=== PATIENT | female | born 1955 | race Caucasian/White ===

== ENCOUNTER 2017-12-09 11:41 | Inpatient (IN) | payer OTHER ==
--- NOTE | 2017-12-09 13:20 | P.CNPUL ---
History of Present Illness Consult date: 12/09/17 Reason for consult: lung mass, other (ICU mangement) Chief complaint: dyspnea History of present illness: Van Puckett is a 62 y.o. female who presented emergency department complaining of generalized weakness and fatigue. The patient states she was at [facility] last week and was diagnosed with a PE and a right upper lobe lung mass. She was transferred to [facility] and was told she would need bronchoscopy and biopsy as an outpatient. She was also scheduled for a PET scan today but did not go because she wasn't feeling well. She also notes her blood sugars have been very elevated and she is a diabetic. She states normally her blood sugars are well controlled. She was on Lovenox for the PE, but states she stopped taking it on 12/06/2017 because she thought the fatigue was due to the medication. She was admitted to [facility] for further workup. She is a former smoker, 1-2 pack per day for 35 years. She quit smoking in 2004. She states she has had some nausea and vomiting. No diarrhea or abdominal pain. But states she was constipated. No fevers or chills at home. She does cough. She states she has been unable to eat and has been very light headed. She denies a history of COPD or asthma. She does not use any inhalers or nebulizer at home. She does not have home oxygen. 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 She denies any inhalation exposures. Apparently the patient did have a reading today of her Echo at [facility] which revealed a large pericardial effusion consistent with pericardial tamponade and was transferred here to [facility] emergently for possible pericardial window and workup with cardiothoraic surgeon. Upon examination the patient is resting in bed in ICU and is on supplemental oxygen via nasal cannula. She continues to have shortness of breath cough, her dyspnea has become worse over the past 24 hours. Review of Systems 14 point review of systems was completed and is negative unless noted above in the HPI Past Medical History Additional Past Medical History / Comment(s): reviewed in prior hospital records Medications and Allergies Allergies Allergy/AdvReac Type Severity Reaction Status Date / Time No Known Allergies Allergy Verified 12/09/17 12:59 Physical Exam Vitals: Intake and Output 05/29/18 05/30/18 05/30/18 22:59 06:59 14:59 Other: Weight 105 kg GENERAL EXAM: Alert, tired, comfortable in no apparent distress. HEAD: Normocephalic. EYES: Normal reaction of pupils, equal size. NOSE: Clear with pink turbinates. THROAT: No erythema or exudates. NECK: No masses, mild JVD distention. CHEST: No chest wall deformity. LUNGS: Equal air entry with no crackles, wheeze, rhonchi or dullness. Bases diminished CVS: S1 and S2 slighlty muffled, with no audible mumurs, regular rhythm. ABDOMEN: No hepatosplenomegaly, normal bowel sounds, no guarding or rigidity. EXTREMITIES: No edema noted, pedal pulses palpable. CENTRAL NERVOUS SYSTEM: No focal deficits, tone is normal in all 4 extremities. 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 Dehydration Diabetes mellitus type 2, uncontrolled Hypertension UTI POA Generalized weakness and fatigue Noncompliance with anticoagulation Elevated transaminases suspect liver metastasis EtOH use Normochromic, normocytic anemia Plan: Maintain an ICU Cardiothoracic on consult O2 to maintain saturation > or = 90% Duonebs and Pulmicort Gentle IVF hydration Urine culture and ABX: Rocephin Blood sugar control Lovenox on hold for surgery GI prophylaxis: Pepcid Lower extremity doppler US negative for DVT Echocardiogram reviewed E of 55-60% with a large pericardial effusion consistent with pericardial tamponade Will schedule for outpatient PET scan and biopsy Obtain records from [facility] and [facility] Continued smoking cessation Abdominal ultrasound reviewed, consider CT to assess for possible metastatic disease Incentive spirometry and pulmonary hygiene Thank you for this consultation. We will continue to follow along. I performed an examination of the patient and discussed their management with the nurse practitioner. I have reviewed the nurse practitioner's note and agree with the documented findings and plan of care.
[2017-12-09 13:48] LABS: Basophils % (A) 0 %; Eosinophils # (A) 0.1 k/uL (0-0.7); Eosinophils % (A) 1 %; HCT 27.6 % (34.0-46.0); HGB 9.3 gm/dL (11.4-16.0); Lymphocytes # (A) 1.3 k/uL (1.0-4.8); Lymphocytes % (A) 10 %; MCH 29.6 pg (25.0-35.0); MCHC 33.7 g/dL (31.0-37.0); MCV 87.6 fL (80.0-100.0); Mean Platelet Volume 9.7; Monocytes # (A) 0.9 k/uL (0-1.0); Monocytes % (A) 7 %; Neutrophils # (A) 10.1 k/uL (1.3-7.7); Neutrophils % (A) 80 %; Platelet Count 284 k/uL (150-450); RBC 3.15 m/uL (3.80-5.40); RDW 13.7 % (11.5-15.5); WBC 12.6 k/uL (3.8-10.6)
[2017-12-09] MEDS ORDERED: ceFAZolin 2,000 MG in DEXTROSE/WATER 1 50ML.BAG IVPB STA (13:48)
--- NOTE | 2017-12-09 13:48 | P.GSCN ---
History of Present Illness Consult date: 12/09/17 Reason for Consult: Large pericardial effusion. Evaluate for pericardial window. Requesting physician: Rogelio Davis History of present illness: This is a 62-year-old female patient who is followed by Dr. Carina Hugo on an outpatient basis. The patient has a past medical history significant for diabetes mellitus, hypertension, history of nicotine dependence, quit smoking in 2004, recent diagnosis of right upper lobe lung mass, and pulmonary embolism. The patient presented to the emergency department at [facility] with complaints of shortness of breath, generalized weakness and fatigue, and feeling like she was going to pass out. She reports that she was recently diagnosed with a right upper lobe lung mass and a pulmonary embolus about 2 weeks ago at [facility]. Subsequently she was discharged from [facility] and was scheduled to undergo a PET computed tomography scan for further evaluation of her right upper lobe mass. The patient reports that she has been taking Lovenox injections at home for her pulmonary embolus but has recently discontinued the Lovenox as she thought it was contributing to her shortness of breath and fatigue. The patient denies any fever, diarrhea, loss of bladder or bowel function or pain. Subsequently while at [facility] she underwent a venous duplex exam of her lower extremities which was negative for any deep vein thrombosis. She also underwent a 2-D echocardiogram which demonstrated mild mitral valve regurgitation, diastolic compression of the right ventricle suggestive of cardiac, Diastolic Right Atrial Compression Consistent with Damp Not, and a large circumferential pericardial effusion, and a left ventricular systolic function is about 55-60%. Subsequently, due to the patient's large pericardial effusion and she was transferred to [facility] for evaluation for pericardial window by Dr. Gail Bryant from cardiothoracic surgery. Review of Systems A 14 point review of system was completed and was negative except as mentioned in HPI. Past Medical History Past Medical History: Diabetes Mellitus, Hypertension, Pulmonary Embolus (PE) Additional Past Medical History / Comment(s): Right upper lobe lung mass measuring 5.4 cm x 3.7 cm x 3.3 cm. History of Any Multi-Drug Resistant Organisms: None Reported Past Surgical History: Cholecystectomy, Tonsillectomy Additional Past Surgical History / Comment(s): 2 masses removed from her vocal cords in [address] Gonzalez. Past Anesthesia/Blood Transfusion Reactions: No Reported Reaction Past Psychological History: No Psychological Hx Reported Smoking Status: Former smoker (Quit smoking in 2004.) Past Alcohol Use History: Occasional Past Drug Use History: None Reported Medications and Allergies Home Medications Medication Instructions Recorded Confirmed Type No Known Home Medications [No 12/09/17 12/09/17 History Known Home Medications] Allergies Allergy/AdvReac Type Severity Reaction Status Date / Time No Known Allergies Allergy Verified 12/09/17 12:59 Surgical - Exam - General well developed, well nourished, no distress, no pain, obese - Eyes PERRL, normal ocular movement - ENT normal pinna, normal nares, normal mucosa, no hearing loss, no congestion - Neck No lymphadenopathy, bilateral JVD present. no masses, no bruits, trachea midline - Respiratory Lung sounds essentially clear throughout, diminished her bilateral bases. Respirations are symmetrical and nonlabored. - Cardiovascular Regular rhythm and rate. S1 and S2 present. Negative for S3 or murmur. Bedside telemetry showing sinus tachycardia with global ST elevation heart rate 105. No edema present. - Abdomen Abdomen is soft, nontender nondistended. Active bowel sounds all 4 abdominal quadrants. No guarding or rigidity. - Genitourinary Deferred - Rectum Deferred - Integumentary Skin is warm and dry. No clubbing or cyanosis present. No rash or abnormal pigmentation present. - Neurologic normal coordination, normal sensation - Musculoskeletal normal gait, normal posture - Psychiatric oriented to time, oriented to person, oriented to place, speech is normal, memory intact Results - Imaging Chest x-ray: report reviewed, image reviewed CT scan - chest: report reviewed, image reviewed US - abdomen: report reviewed Assessment and Plan (1) Pericardial effusion Current Visit: Yes Status: Acute Code(s): I31.3 - PERICARDIAL EFFUSION ( NONINFLAMMATORY) SNOMED Code(s): 874274586 (2) Hypertension Current Visit: Yes Status: Acute Code(s): I10 - ESSENTIAL (PRIMARY) HYPERTENSION SNOMED Code(s): 13734668 (3) Diabetes mellitus Current Visit: Yes Status: Acute Code(s): E11.9 - TYPE 2 DIABETES MELLITUS WITHOUT COMPLICATIONS SNOMED Code(s): 25502393 (4) SIADH (syndrome of inappropriate ADH production) Current Visit: Yes Status: Acute Code(s): E22.2 - SYNDROME OF INAPPROPRIATE SECRETION OF ANTIDIURETIC HORMONE SNOMED Code(s): 64520876 Plan: The patient was seen and examined. Her chart and diagnostics were reviewed. The patient was seen and examined by Dr. Gail Bryant. The patient has a large pericardial effusion with cardiac tampanode physiology on 2-D echocardiogram. The results of the 2-D echocardiogram were reviewed with the patient and her and an urgent pericardial window was recommended. The patient has agreed to proceed with a pericardial window. The patient will be made nothing by mouth, and consent was be obtained. Type and screen has been ordered. Continue 0.9% normal saline at 100 mL per hour. Cardiology management per Dr. Davis's recommendations. Medical management per primary care service. Thank you Dr. Davis for this consult and we looked for to working with you in the care of your patient. Time with Patient: Greater than 30
[2017-12-09] MEDS ORDERED: ceFAZolin IN SWFI 2 GM/20 ML SYRINGE IVP STA (13:52)
[2017-12-09 13:58] LABS: INR 1.4 (<1.2); Prothrombin Time 13.5 sec (9.0-12.0)
[2017-12-09 14:06] LABS: AST 731 U/L (14-36); Albumin 3.1 g/dL (3.5-5.0); Alkaline Phosphatase 209 U/L (38-126); Anion Gap 10 mmol/L; Blood Urea Nitrogen 30 mg/dL (7-17); Calcium 8.4 mg/dL (8.4-10.2); Carbon Dioxide 22 mmol/L (22-30); Chloride 92 mmol/L (98-107); Glucose 128 mg/dL (74-99); Magnesium 2.5 mg/dL (1.6-2.3); Phosphorus 3.4 mg/dL (2.5-4.5); Potassium 4.2 mmol/L (3.5-5.1); Sodium 124 mmol/L (137-145); Total Bilirubin 0.5 mg/dL (0.2-1.3); Total Protein 5.5 g/dL (6.3-8.2)
[2017-12-09 14:15] LABS: ALT 1172 U/L (9-52)
[2017-12-09] MEDS ORDERED: PROPOFOL 10 MG/ML 20 ML VIAL IV ONE (14:17)
[2017-12-09] MEDS ORDERED: LIDOCAINE 1% INJ 10MG/ML (20 ML MDV) ONE (14:17)
[2017-12-09] MEDS ORDERED: SUCCINYLCHOLINE CHLORIDE VIAL 200 MG/10 ML VIAL IV ONE (14:17)
[2017-12-09] MEDS ORDERED: GLYCOPYRROLATE 0.2 MG/ML 2 ML VIAL ONE (14:17)
[2017-12-09] MEDS ORDERED: NEOSTIGMINE 1 MG/ML 10 ML VIAL ONE (14:17)
[2017-12-09] MEDS ORDERED: fentaNYL (PF) 50 MCG/ML 2 ML AMP ONE (14:17)
[2017-12-09] MEDS ORDERED: MIDAZOLAM 2 MG/2 ML VIAL ONE (14:17)
[2017-12-09] MEDS ORDERED: ETOMIDATE 2 MG/ML 10 ML VIAL ONE (14:17)
[2017-12-09] MEDS ORDERED: ROCURONIUM BROMIDE 10 MG/ML 10 ML VIAL IV ONE (14:17)
--- NOTE | 2017-12-09 15:03 | P.HPIM ---
History of Present Illness H&P Date: 12/09/17 Chief Complaint: pericardial tamponade This is a 8-year-old female with Dr. Hugo medical history significant for hypertension and hypertensive cardio vascular disease, hyperlipidemia, diabetes mellitus type 2, patient was fine up until 2-3 weeks ago according her when she developed significant fatigue and tiredness she was hospitalized at [facility] followed by [facility] and she was found to have a right upper lobe mass and computed tomography scan of the chest was suspicious for pulmonary embolism as well and the patient was started on Lovenox 1 mg per KG every 12 hours and she was sent home patient became quite fatigued and tired and extreme short of breath she ended up coming to the emergency department at [facility] with the above symptoms and she was admitted to the hospital after she was found to have hyperglycemia and at about the same time she was found to have significant hyponatremia thought to be due to the syndrome of inappropriate ADH secretion SIADH due to possible small cell lung cancer, ultrasound of the abdomen at that time was done and that showed possible liver metastases echocardiogram was done and that surprisingly showed significant large pericardial effusion with pericardial tamponade patient was transferred urgently to the intensive care unit at [facility] and she was seen in consultation by cardiothoracic surgery and she is scheduled to go for pericardial window her on today. Review of Systems Constitutional: Reports anorexia, Reports fatigue, Reports lethargy, Reports malaise, Reports weakness, Reports weight loss Eyes: denies blurred vision, denies bulging eye, denies decreased vision, denies diplopia Ears: deny: decreased hearing Ears, nose, mouth and throat: Denies dysphagia, Denies epistaxis, Denies swelling in throat, Denies sore throat Cardiovascular: Reports chest pain, Reports decreased exercise tolerance, Reports dyspnea on exertion, Reports high blood pressure, Reports shortness of breath Respiratory: Reports congestion, Reports cough, Reports cough with sputum, Reports dyspnea, Reports pain on inspiration, Denies hemoptysis, Denies sleep apnea, Denies snoring, Denies wheezing Gastrointestinal: Reports bloating, Reports loss of appetite, Reports nausea, Denies abdominal pain, Denies BRBPR, Denies excessive gas, Denies melena, Denies vomiting Genitourinary: Denies dysuria, Denies urgency Musculoskeletal: Denies myalgias Musculoskeletal: absent: ankle pain, ankle stiffness, ankle swelling, elbow pain , elbow stiffness, elbow swelling, foot pain, foot stiffness, foot swelling, hand pain, hand stiffness, hand swelling, hip pain, hip stiffness, hip swelling , knee pain, knee stiffness, knee swelling, shoulder pain, shoulder stiffness, shoulder swelling, wrist pain, wrist stiffness, wrist swelling Integumentary: Denies pruritus, Denies rash Neurological: Denies numbness, Denies weakness Psychiatric: Reports anxiety Endocrine: Denies fatigue, Denies weight change Past Medical History Past Medical History: Cancer (possible small cell lung cancer.), Diabetes Mellitus, GERD/Reflux, Hyperlipidemia, Hypertension, Pulmonary Embolus (PE), Thyroid Disorder Additional Past Medical History / Comment(s): Right upper lobe lung mass measuring 5.4 cm x 3.7 cm x 3.3 cm. History of Any Multi-Drug Resistant Organisms: None Reported Past Surgical History: Cholecystectomy, Tonsillectomy Additional Past Surgical History / Comment(s): 2 masses removed from her vocal cords in [address] Gonzalez. Past Anesthesia/Blood Transfusion Reactions: No Reported Reaction Past Psychological History: No Psychological Hx Reported Smoking Status: Former smoker (patient used to smoke about half a pack every day she smoked for about 30 years quit in 2004.) Past Alcohol Use History: Occasional Past Drug Use History: None Reported - Past Family History Mother Family Medical History: AFIB, Cancer (mother is alive she is 84-year-old with history of lung cancer atrial fibrillation and PAD.) Father Family Medical History: Cancer (father is 83-year-old with a history of pancreatic cancer CVA and CAD.), Coronary Artery Disease (CAD), CVA/TIA Brother(s) Family Medical History: No Reported History (patient has one brother no major medical problems.) Son(s) Family Medical History: No Reported History (patient has 2 sons no major medical problems.) Daughter(s) Family Medical History: No Reported History (patient has one daughter no major medical problems.) Medications and Allergies Home Medications Medication Instructions Recorded Confirmed Type No Known Home Medications [No 12/09/17 12/09/17 History Known Home Medications] Allergies Allergy/AdvReac Type Severity Reaction Status Date / Time No Known Allergies Allergy Verified 12/09/17 12:59 Physical Exam Vitals: Intake and Output 12/08/17 12/09/17 12/09/17 22:59 06:59 14:59 Other: Weight 105 kg - Constitutional General appearance: average body habitus, mild distress - EENT Eyes: EOMI, PERRLA, dentition normal, scleral icterus, normal appearance ENT: hearing grossly normal, NA/AT, normal oropharynx, no thrush - Neck Neck: no lymphadenopathy, normal ROM, no rigidity, no stridor, no thyromegaly Carotids: bilateral: upstroke normal - Respiratory Respiratory: bilateral: diminished, negative: dullness, rales, rhonchi, wheezing , prolonged expiration, prolonged inspiration - Cardiovascular Rhythm: regular Heart sounds: normal: S1, S2 Abnormal Heart Sounds: systolic murmur - Gastrointestinal General gastrointestinal: normal bowel sounds, soft, tenderness (right upper quadrant.) - Integumentary Integumentary: normal, normal turgor - Neurologic Neurologic: CNII-XII intact - Musculoskeletal Musculoskeletal: gait normal, generalized weakness, strength equal bilaterally - Psychiatric Psychiatric: A&O x's 3, appropriate affect, intact judgment & insight Results CBC & Chem 7: 12/09/17 13:28 12/09/17 13:28 Labs: Abnormal Lab Results - Last 24 Hours (Table) 12/09/17 12/09/17 12/09/17 Range/Units 13:28 13:28 13:28 WBC 12.6 H (3.8-10.6) k/uL RBC 3.15 L (3.80-5.40) m/uL Hgb 9.3 L (11.4-16.0) gm/dL Hct 27.6 L (34.0-46.0) % Neutrophils # 10.1 H (1.3-7.7) k/uL PT 13.5 H (9.0-12.0) sec INR 1.4 H (<1.2) Sodium 124 L (137-145) mmol/L Chloride 92 L (98-107) mmol/L BUN 30 H (7-17) mg/dL Glucose 128 H (74-99) mg/dL Magnesium 2.5 H (1.6-2.3) mg/dL AST 731 H (14-36) U/L ALT 1172 H (9-52) U/L Alkaline Phosphatase 209 H (38-126) U/L Total Protein 5.5 L (6.3-8.2) g/dL Albumin 3.1 L (3.5-5.0) g/dL Thrombosis Risk Factor Assmnt - DVT/VTE Prophylaxis DVT/VTE Prophylaxis: Pharmacologic Prophylaxis ordered, Mechanical Prophylaxis ordered Assessment and Plan Assessment: Assessment and plan: 1. Large pericardial effusion possibly metastatic due to the possible small cell lung cancer with cardiac tamponade. Patient is scheduled to go to the OR for pericardial window with Dr. Bryant, for diagnostic and therapeutic purposes with placement of a drain in there, send the fluid for cytology Gram stain and culture, patient would be admitted to intensive care unit, she will be seen in consultation by cardiology as well as by pulmonary and critical care. 2. Right upper lobe mass suggestive of the lung cancer possibly small cell lung cancer. We need to obtain a tissue biopsy consult hematology oncology Dr. Guzman. 3. Hyponatremia secondary to the syndrome of inappropriate ADH secretion. Continue fluid restriction to 1000 mL every 24 hours, continue IV fluid for now , until after the patient is out of the OR, monitor the patient's sodium on a daily basis. 4. Diabetes mellitus type 2. Start the patient on Lantus 25 units at bedtime along with the Humalog 10 units before each meal, BGM before each meal and at bedtime. 5. Hypertension and hypertensive cardiovascular disease. Hold off antihypertensive medicine until after the surgery. 6. Anemia. Monitor the patient's CBC. 7. Elevated liver function tests likely related to liver metastases. Patient will need to have a PET scan. 8. Pulmonary embolism. Continue patient on Lovenox 1 mg per KG subcutaneous every 12 hours after the surgery. 9. Patient is full code. 10. Admit to inpatient. Estimate a length of stay 2 midnights. 11. Prognosis is very guarded.
[2017-12-09] MEDS ORDERED: SODIUM CHLORIDE 0.9% 50 ML with ceFAZolin 2,000 MG IV ONE ×2 (15:14)
[2017-12-09] MEDS ORDERED: SODIUM CHLORIDE 0.9% 1,000 ML IV ONE (15:14)
[2017-12-09] MEDS: fentaNYL (PF) 50 MCG/ML 2 ML AMP IV ONE ×2 (16:20→16:37)
[2017-12-09 16:57] LABS: Glucose,Whole Blood 144 mg/dL (75-99)
[2017-12-09] MEDS: SODIUM CHLORIDE 0.9% 1,000 ML IV SCH ×2 (17:11→23:48)
--- NOTE | 2017-12-09 18:02 | XR ---
EXAMINATION TYPE: XR chest 1V portable DATE OF EXAM: 12/09/2017 COMPARISON: NONE INDICATION: Status post cardiac window TECHNIQUE: Single frontal view of the chest is obtained. FINDINGS: The heart size is normal. The pulmonary vasculature is normal. Some subtle infiltrate may be in the right upper lung field overlying the scapula. Some hazy appearan laurie at the left base. There is blunting the right costophrenic angle. Very minimal pleural effusions at the lung bases may be present. IMPRESSION: 1. Suggestion of mild bilateral pleural effusions. 2. Some right upper lobe atelectasis or early developing infiltrate may be present.
--- NOTE | 2017-12-09 18:25 | OP ---
OPERATIVE REPORT DATE OF SURGERY: December 09, 2017. SURGEON: Dr. Gail Bryant. COMEDIAN: Felipe Ley. ANESTHESIA: General. PREOPERATIVE DIAGNOSES: Large pericardial effusion with tamponade physiology, lung mass, probable metastatic lung carcinoma. POSTOPERATIVE DIAGNOSES: Large pericardial effusion with tamponade physiology, lung mass, probable metastatic lung carcinoma. PROCEDURE: Subxiphoid pericardiotomy with transesophageal echocardiogram. INDICATION FOR SURGERY: The patient is a 62-year-old lady transferred from [facility] with a 2D echo showing a very large pericardial effusion with tamponade physiology with right ventricular and right atrial diastolic collapse. She had respiratory variation with her pulses. Systolic blood pressure was around 110 and heart rate was 90. The patient was just diagnosed last week with a right upper lobe lung mass with probable pulmonary embolism and she was on Lovenox for anticoagulation. There was no tissue diagnosis. The patient was readmitted to [facility] with increasing shortness of breath. A 2D echo showed large pericardial effusion. To note that her CT scan performed on 11/28/2017 at [facility] showed minimal pericardial fluid. The patient has been taken for an urgent subxiphoid pericardiotomy. Risks, benefits, and alternatives were discussed with her and her . They understood it and agreed to proceed. DESCRIPTION OF THE PROCEDURE: After placement of her right brachial arterial line, general endotracheal anesthesia was induced uneventfully with total hemodynamic stability. The patient received 2 g of cefazolin intravenously. The chest and abdomen were prepped and draped using ChloraPrep. Ioban . Transesophageal echocardiogram confirmed the 2D echo finding showing large pericardial effusion that is circumferential with tamponade physiology. A 5 cm incision was made centered on the tip of the xiphoid bone. Dissection was carried through the linea alba which was opened. I used retractor to elevate the xiphoid and the sternum. With blunt dissection, we could identify the tense bluish pericardium. An incision with a 15 blade was made in it and a total of 1 L of dark bloody fluid was retrieved. A piece of pericardium was sent to pathology. The whole fluid was sent for cytology. There was no obvious metastatic deposit on the ventricle. RIANA showed basically no residual effusion. With that, a right angle 32-[place]ian chest tube was placed in the posterior pericardium and brought out through a separate stab incision below the surgical incision and affixed using Ethibond. The fascia was closed using Ethibond #0 starting in each corner and meeting in the midline. The rest of the closure proceeded in layers using Vicryl. Skin glue was applied. The patient had minimal blood loss. She was transferred to the ICU in stable condition. MMODL / IJN: [id number] /
[2017-12-09] MEDS: KETOROLAC 30 MG/ML 1 ML VIAL IVP SCH ×2 (19:00→23:48)
[2017-12-09] MEDS: ceFAZolin IN SWFI 2 GM/20 ML SYRINGE IVP SCH (20:15)
[2017-12-09 21:30] LABS: Glucose,Whole Blood 105 mg/dL (75-99)
[2017-12-09] MEDS: INSULIN ASPART 100 UNIT/ML 1 ML 10 ML VIAL SQ SCH (22:25)
[2017-12-10 05:10] LABS: Hemoglobin A1C 10.1 % (4.0-6.0)
[2017-12-10 05:53] LABS: ALT 723 U/L (9-52); AST 272 U/L (14-36); Albumin 2.4 g/dL (3.5-5.0); Alkaline Phosphatase 159 U/L (38-126); Anion Gap 8 mmol/L; Blood Urea Nitrogen 21 mg/dL (7-17); Carbon Dioxide 24 mmol/L (22-30); Chloride 103 mmol/L (98-107); Glucose 77 mg/dL (74-99); Magnesium 2.5 mg/dL (1.6-2.3); Potassium 3.5 mmol/L (3.5-5.1); Sodium 135 mmol/L (137-145); Total Bilirubin 0.4 mg/dL (0.2-1.3); Total Protein 4.7 g/dL (6.3-8.2)
[2017-12-10 06:00] LABS: Basophils % (A) 0 %; Eosinophils # (A) 0.2 k/uL (0-0.7); Eosinophils % (A) 2 %; HCT 26.8 % (34.0-46.0); HGB 8.7 gm/dL (11.4-16.0); Lymphocytes # (A) 0.9 k/uL (1.0-4.8); Lymphocytes % (A) 10 %; MCH 28.8 pg (25.0-35.0); MCHC 32.5 g/dL (31.0-37.0); MCV 88.7 fL (80.0-100.0); Mean Platelet Volume 8.8; Monocytes # (A) 0.5 k/uL (0-1.0); Monocytes % (A) 6 %; Neutrophils # (A) 6.8 k/uL (1.3-7.7); Neutrophils % (A) 79 %; Platelet Count 242 k/uL (150-450); RBC 3.03 m/uL (3.80-5.40); RDW 14.7 % (11.5-15.5); WBC 8.6 k/uL (3.8-10.6)
[2017-12-10] MEDS: ceFAZolin IN SWFI 2 GM/20 ML SYRINGE IVP SCH ×2 (06:06→13:30)
[2017-12-10] MEDS: KETOROLAC 30 MG/ML 1 ML VIAL IVP SCH ×3 (06:28→18:33)
--- NOTE | 2017-12-10 07:19 | XR ---
EXAMINATION TYPE: XR chest 1V portable DATE OF EXAM: 12/10/2017 COMPARISON: 12/09/2017 HISTORY: Status post cardiac window. Follow-up exam. Right upper lobe airspace disease. TECHNIQUE: Single frontal view of the chest is obtained. FINDINGS: There is a similar appearing right upper lobe masslike consolidation. Left basilar subsegm ental atelectasis is also noted. There is some haziness of the costophrenic angles that may relate to patient body habitus or trace pleural effusions. No pneumothorax. Mild multilevel degenerative worley es of the thoracic spine are seen. Cardia mediastinal silhouette is upper limits of normal and stable . IMPRESSION: Persistent right upper lobe masslike consolidation. This could represent pneumonia in th e appropriate clinical setting. Follow-up to resolution is recommended to ensure no underlying mass.
[2017-12-10 07:33] LABS: Glucose,Whole Blood 88 mg/dL (75-99)
[2017-12-10] MEDS: INSULIN ASPART 100 UNIT/ML 1 ML 10 ML VIAL SQ SCH ×4 (08:19→21:00)
[2017-12-10] MEDS: POTASSIUM CHLORIDE 10 MEQ in WATER FOR INJECTION 1 100ML.BAG IVPB SCH ×2 (08:20→14:14)
--- NOTE | 2017-12-10 08:32 | P.CONS ---
History of Present Illness - Reason for Consult Consult date: 12/10/17 Lung, Liver Mass Requesting physician: Manisha Coto - Chief Complaint SOB - History of Present Illness Ms. Puckett is a 62-year-old female. She has a known medical history of hypertension, vascular disease, hyperlipidemia, diabetes mellitus type 2. Apparently she has been in her normal state of health until a few weeks prior. Per the medical record approximately 2 or 3 weeks ago complained of feeling increasing and persistent fatigue. She was evaluated at [facility]. She was then evaluated at [facility] where a CT scan of her chest was completed and apparently showed a right upper lobe mass. with suspicion for a pulmonary embolism. She was started on Lovenox and discharged home. She continued to have persistent worsening fatigued and complained of progressive shortness of breath of breath. She presented to the emergency department at [facility] and admitted. During her Emergency room evaluation she was found to be hyperglycemic and hyponatremic. Lower extremity doppler did not show evidence of any DVT. Echocardiogram was concerning for pericardial effussion with pericardial tamponade, subsequently Ms. Celaya was transferred to the intensive care unit at [facility] for cardiothoracic surgery consultation. Ultrasound of the abdomen was also repeated and showed hypoechotic lesions in liver concerning for a metastatic malignant process. She is status post pericardial window on 12/09/17. 12/10/17 Seen in ICU, Sitting up in chair and eating breakfast. She is concerned about probable diagnosis of cancer, while we await pathology. She is doing well after undergoing pericardial window. Review of Systems A 14 point review of systems assessed ad completed and all negative except HPI Past Medical History Past Medical History: Cancer (possible small cell lung cancer.), Diabetes Mellitus, GERD/Reflux, Hyperlipidemia, Hypertension, Pulmonary Embolus (PE), Thyroid Disorder Additional Past Medical History / Comment(s): Right upper lobe lung mass measuring 5.4 cm x 3.7 cm x 3.3 cm. History of Any Multi-Drug Resistant Organisms: None Reported Past Surgical History: Cholecystectomy, Tonsillectomy Additional Past Surgical History / Comment(s): 2 masses removed from her vocal cords in [address] Gonzalez. Past Anesthesia/Blood Transfusion Reactions: No Reported Reaction Past Psychological History: No Psychological Hx Reported Smoking Status: Former smoker (patient used to smoke about half a pack every day she smoked for about 30 years quit in 2004.) Past Alcohol Use History: Occasional Past Drug Use History: None Reported - Past Family History Mother Family Medical History: AFIB, Cancer (mother is alive she is 84-year-old with history of lung cancer atrial fibrillation and PAD.) Father Family Medical History: Cancer (father is 83-year-old with a history of pancreatic cancer CVA and CAD.), Coronary Artery Disease (CAD), CVA/TIA Brother(s) Family Medical History: No Reported History (patient has one brother no major medical problems.) Son(s) Family Medical History: No Reported History (patient has 2 sons no major medical problems.) Daughter(s) Family Medical History: No Reported History (patient has one daughter no major medical problems.) Medications and Allergies Home Medications Medication Instructions Recorded Confirmed Type Lovenox Unknown Dose 1 dose SQ BID 12/09/17 12/09/17 History Allergies Allergy/AdvReac Type Severity Reaction Status Date / Time No Known Allergies Allergy Verified 12/09/17 12:59 Physical Exam Vitals: Vital Signs Temp Pulse Pulse Resp BP BP Pulse Ox 12/10/17 06:00 69 17 121/58 100 12/10/17 05:00 68 18 100 12/10/17 04:00 97.5 F L 64 16 100 12/10/17 03:00 68 19 100 12/10/17 02:00 66 18 98 12/10/17 01:00 70 16 104/60 97 12/10/17 00:00 98 F 65 86 17 111/64 98 12/09/17 23:30 69 18 97 12/09/17 23:00 71 17 97 12/09/17 22:30 69 16 98 12/09/17 22:25 68 17 98 12/09/17 22:00 75 13 100 12/09/17 21:30 69 16 99 12/09/17 21:00 71 17 98 12/09/17 20:30 78 16 98 12/09/17 20:15 81 15 98 12/09/17 20:00 97.5 F L 79 86 16 86 L 12/09/17 19:45 80 15 94 L 12/09/17 19:41 80 17 92 L 12/09/17 19:00 98.3 F 86 22 95 05/30/18 18:00 85 24 96 12/09/17 17:00 98.0 F 82 26 H 175/68 96 12/09/17 16:45 81 18 138/77 99 12/09/17 16:30 82 18 158/85 100 12/09/17 16:15 83 18 163/82 100 12/09/17 16:07 96.8 F L 83 18 156/90 100 Intake and Output 12/09/17 12/10/17 12/10/17 22:59 06:59 14:59 Intake Total 1850 900 Output Total 550 781 Balance 1300 119 Intake: IV 1350 900 Sodium Chloride 0.9% 1, 300 900 000 ml @ 100 mls/hr IV . Q10H [facility] Rx#:[id number] Intake, IV Titration 500 Amount Sodium Chloride 0.9% 1, 500 000 ml @ 100 mls/hr IV . Q10H [facility] Rx#:[id number] Output: Chest Tube Drainage 30 31 medistinal 30 31 Drainage 45 chest 45 Urine 450 750 Estimated Blood Loss 25 Other: Voiding Method Bedside Commode Bedside Commode # Voids 1 1 Weight 107.2 kg ABP, PAP, CO, CI - Last 8 Hours Arterial Blood Pressure 108/47 Arterial Blood Pressure 108/48 Arterial Blood Pressure 92/44 Arterial Blood Pressure 96/50 Arterial Blood Pressure 100/48 Arterial Blood Pressure 94/51 - Constitutional General appearance: cooperative, no acute distress - EENT Eyes: EOMI, PERRLA, dentition normal ENT: hard of hearing, normal oropharynx - Neck Neck: normal ROM - Respiratory Respiratory: bilateral: CTA - Cardiovascular Rhythm: irregularly irregular Heart sounds: normal: S1, S2 leg Peripheral Edema: bilateral: Trace - Gastrointestinal General gastrointestinal: normal bowel sounds, soft, tenderness - Integumentary Integumentary: pale - Neurologic Neurologic: CNII-XII intact - Musculoskeletal Musculoskeletal: generalized weakness, strength equal bilaterally - Psychiatric Psychiatric: A&O x's 3, appropriate affect, intact judgment & insight Results CBC & Chem 7: 12/10/17 04:20 12/10/17 04:20 Labs: Abnormal Lab Results - Last 24 Hours (Table) 12/09/17 12/09/17 12/09/17 Range/Units 13:28 13:28 13:28 WBC 12.6 H (3.8-10.6) k/uL RBC 3.15 L (3.80-5.40) m/uL Hgb 9.3 L (11.4-16.0) gm/dL Hct 27.6 L (34.0-46.0) % Neutrophils # 10.1 H (1.3-7.7) k/uL Lymphocytes # (1.0-4.8) k/uL PT 13.5 H (9.0-12.0) sec INR 1.4 H (<1.2) Sodium 124 L (137-145) mmol/L Chloride 92 L (98-107) mmol/L BUN 30 H (7-17) mg/dL Glucose 128 H (74-99) mg/dL POC Glucose (mg/dL) (75-99) mg/dL Hemoglobin A1c (4.0-6.0) % Calcium (8.4-10.2) mg/dL Magnesium 2.5 H (1.6-2.3) mg/dL AST 731 H (14-36) U/L ALT 1172 H (9-52) U/L Alkaline Phosphatase 209 H (38-126) U/L Total Protein 5.5 L (6.3-8.2) g/dL Albumin 3.1 L (3.5-5.0) g/dL 12/09/17 12/09/17 12/09/17 Range/Units 13:28 16:50 21:28 WBC (3.8-10.6) k/uL RBC (3.80-5.40) m/uL Hgb (11.4-16.0) gm/dL Hct (34.0-46.0) % Neutrophils # (1.3-7.7) k/uL Lymphocytes # (1.0-4.8) k/uL PT (9.0-12.0) sec INR (<1.2) Sodium (137-145) mmol/L Chloride (98-107) mmol/L BUN (7-17) mg/dL Glucose (74-99) mg/dL POC Glucose (mg/dL) 144 H 105 H (75-99) mg/dL Hemoglobin A1c 10.1 H (4.0-6.0) % Calcium (8.4-10.2) mg/dL Magnesium (1.6-2.3) mg/dL AST (14-36) U/L ALT (9-52) U/L Alkaline Phosphatase (38-126) U/L Total Protein (6.3-8.2) g/dL Albumin (3.5-5.0) g/dL 12/10/17 12/10/17 Range/Units 04:20 04:20 WBC (3.8-10.6) k/uL RBC 3.03 L (3.80-5.40) m/uL Hgb 8.7 L (11.4-16.0) gm/dL Hct 26.8 L (34.0-46.0) % Neutrophils # (1.3-7.7) k/uL Lymphocytes # 0.9 L (1.0-4.8) k/uL PT (9.0-12.0) sec INR (<1.2) Sodium 135 L (137-145) mmol/L Chloride (98-107) mmol/L BUN 21 H (7-17) mg/dL Glucose (74-99) mg/dL POC Glucose (mg/dL) (75-99) mg/dL Hemoglobin A1c (4.0-6.0) % Calcium 8.0 L (8.4-10.2) mg/dL Magnesium 2.5 H (1.6-2.3) mg/dL AST 272 H (14-36) U/L ALT 723 H (9-52) U/L Alkaline Phosphatase 159 H (38-126) U/L Total Protein 4.7 L (6.3-8.2) g/dL Albumin 2.4 L (3.5-5.0) g/dL Assessment and Plan Plan: Assessment and recommendations: 1. Normocytic Anemia - Monitor CBC - Transfuse PRBC Hgb less than 7 - Anemia Work-up 2. New Lung Mass - Concerning for underlying Neoplasm - Await Pathology of recent Cardiac procedure 3. Hypoechoic Lesions on Liver - concerning for metastatic Disease 4. Pericardial Effusion and Tamponade - Status Post RIANA and Pericardial Window - Await pathology from pericardial tissue,fluid 5. Acute Pulmonary Embolism - Diagnosed at outside Hospital - Continue on Short Acting anticoagulation at this time - Rec Heparin in case further surgical intervention is needed. 6. Liver Transminitis - Likely secondary to underlying metastatic malignancy - Monitor Liver Function - Await Pathology Physican Attestation: I have completed the full history and physical of this patient and agree with above dictation by Katherin Gutierrez NP, Dictated as a scribe.
[2017-12-10] MEDS ORDERED: PANTOPRAZOLE 40 MG/10 ML VIAL IVP SCH (09:00)
[2017-12-10 09:30] LABS: Reticulocyte % 2.9 % (0.5-2.0)
--- NOTE | 2017-12-10 09:31 | P.PN ---
Subjective Progress Note Date: 12/10/17 Principal diagnosis: Large pericardial effusion. Previous medical history of diabetes mellitus, hypertension, previous tobacco dependence, recent diagnosis of right upper lobe lung mass and pulmonary embolism. POD #1 subxiphoid pericardiotomy with transesophageal echocardiogram Patient is currently sitting up in a recliner in no acute distress. Denies pain , shortness of breath. States she feels much better than when she came in. Objective - Vital Signs Vital signs: Vital Signs Temp 97.5 F L 12/10/17 08:00 Pulse 72 12/10/17 08:00 Resp 16 12/10/17 08:00 BP 86/57 12/10/17 08:00 Pulse Ox 98 12/10/17 08:20 Intake & Output 12/09/17 12/10/17 12/10/17 18:59 06:59 18:59 Intake Total 1650 1300 340 Output Total 570 861 109 Balance 1080 439 231 Weight 105 kg 107.2 kg 107.2 kg Intake: IV 1050 1200 100 Sodium Chloride 0.9% 1, 1200 100 000 ml @ 100 mls/hr IV . Q10H [facility] Rx#:[id number] Intake, IV Titration 600 100 Amount Sodium Chloride 0.9% 1, 600 100 000 ml @ 100 mls/hr IV . Q10H [facility] Rx#:[id number] Oral 240 Output: Chest Tube Drainage 61 9 medistinal 61 9 Drainage 45 chest 45 Urine 500 800 100 Estimated Blood Loss 25 Other: Voiding Method Bedside Commode Bedside Commode # Voids 1 ABP, PAP, CO, CI - Last Documented Arterial Blood Pressure 124/59 - Constitutional General appearance: Present: cooperative, no acute distress, obese - Respiratory Details: Lungs sounds clear bilaterally. Respirations even, nonlabored. Currently 2 L nasal cannula with oxygen saturation 98%. Able to achieve 1000 mL on incentive spirometry. - Cardiovascular Details: S1, S2 present. Regular rate and rhythm, sinus rhythm on telemetry. Palpable peripheral pulses bilaterally. No edema present. No calf pain or tenderness noted. Mediastinal chest tube present, 30 mL serosanguineous drainage overnight , 117 mL since surgery. - Gastrointestinal Gastrointestinal Comment(s): Abdomen soft, nontender, nondistended. Active bowel sounds 4 quadrants. Tolerating diet. - Genitourinary Genitourinary Comment(s): Continues to void clear, yellow urine. - Integumentary Integumentary Comment(s): Skin is warm and dry with evidence perfusion. Mediastinal chest tube site covered with dry intact dressing. - Neurologic Neurologic: Present: CNII-XII intact - Musculoskeletal Musculoskeletal: Present: gait normal, strength equal bilaterally - Psychiatric Psychiatric: Present: A&O x's 3, appropriate affect, intact judgment & insight - Allied health notes Allied health notes reviewed: nursing - Labs CBC & Chem 7: 12/10/17 04:20 12/10/17 04:20 Labs: Abnormal Lab Results - Last 24 Hours (Table) 12/09/17 12/09/17 12/09/17 Range/Units 13:28 13:28 13:28 WBC 12.6 H (3.8-10.6) k/uL RBC 3.15 L (3.80-5.40) m/uL Hgb 9.3 L (11.4-16.0) gm/dL Hct 27.6 L (34.0-46.0) % Neutrophils # 10.1 H (1.3-7.7) k/uL Lymphocytes # (1.0-4.8) k/uL PT 13.5 H (9.0-12.0) sec INR 1.4 H (<1.2) Sodium 124 L (137-145) mmol/L Chloride 92 L (98-107) mmol/L BUN 30 H (7-17) mg/dL Glucose 128 H (74-99) mg/dL POC Glucose (mg/dL) (75-99) mg/dL Hemoglobin A1c (4.0-6.0) % Calcium (8.4-10.2) mg/dL Magnesium 2.5 H (1.6-2.3) mg/dL AST 731 H (14-36) U/L ALT 1172 H (9-52) U/L Alkaline Phosphatase 209 H (38-126) U/L Total Protein 5.5 L (6.3-8.2) g/dL Albumin 3.1 L (3.5-5.0) g/dL 12/09/17 12/09/17 12/09/17 Range/Units 13:28 16:50 21:28 WBC (3.8-10.6) k/uL RBC (3.80-5.40) m/uL Hgb (11.4-16.0) gm/dL Hct (34.0-46.0) % Neutrophils # (1.3-7.7) k/uL Lymphocytes # (1.0-4.8) k/uL PT (9.0-12.0) sec INR (<1.2) Sodium (137-145) mmol/L Chloride (98-107) mmol/L BUN (7-17) mg/dL Glucose (74-99) mg/dL POC Glucose (mg/dL) 144 H 105 H (75-99) mg/dL Hemoglobin A1c 10.1 H (4.0-6.0) % Calcium (8.4-10.2) mg/dL Magnesium (1.6-2.3) mg/dL AST (14-36) U/L ALT (9-52) U/L Alkaline Phosphatase (38-126) U/L Total Protein (6.3-8.2) g/dL Albumin (3.5-5.0) g/dL 12/10/17 12/10/17 Range/Units 04:20 04:20 WBC (3.8-10.6) k/uL RBC 3.03 L (3.80-5.40) m/uL Hgb 8.7 L (11.4-16.0) gm/dL Hct 26.8 L (34.0-46.0) % Neutrophils # (1.3-7.7) k/uL Lymphocytes # 0.9 L (1.0-4.8) k/uL PT (9.0-12.0) sec INR (<1.2) Sodium 135 L (137-145) mmol/L Chloride (98-107) mmol/L BUN 21 H (7-17) mg/dL Glucose (74-99) mg/dL POC Glucose (mg/dL) (75-99) mg/dL Hemoglobin A1c (4.0-6.0) % Calcium 8.0 L (8.4-10.2) mg/dL Magnesium 2.5 H (1.6-2.3) mg/dL AST 272 H (14-36) U/L ALT 723 H (9-52) U/L Alkaline Phosphatase 159 H (38-126) U/L Total Protein 4.7 L (6.3-8.2) g/dL Albumin 2.4 L (3.5-5.0) g/dL - Imaging and Cardiology Chest x-ray: report reviewed, image reviewed Assessment and Plan (1) Mass of upper lobe of right lung Current Visit: Yes Status: Acute Code(s): R91.8 - OTHER NONSPECIFIC ABNORMAL FINDING OF LUNG FIELD SNOMED Code(s): 577976443 (2) History of pulmonary embolism Current Visit: No Status: Resolved Code(s): Z86.711 - PERSONAL HISTORY OF PULMONARY EMBOLISM SNOMED Code(s): 168250200 (3) Tobacco dependence in remission Current Visit: No Status: Resolved Code(s): F17.201 - NICOTINE DEPENDENCE, UNSPECIFIED, IN REMISSION SNOMED Code(s): 853816939 (4) Diabetes mellitus Current Visit: Yes Status: Chronic Code(s): E11.9 - TYPE 2 DIABETES MELLITUS WITHOUT COMPLICATIONS SNOMED Code(s): 02153657 (5) Hypertension Current Visit: Yes Status: Chronic Code(s): I10 - ESSENTIAL (PRIMARY) HYPERTENSION SNOMED Code(s): 31630806 (6) Pericardial effusion Current Visit: Yes Status: Acute Code(s): I31.3 - PERICARDIAL EFFUSION ( NONINFLAMMATORY) SNOMED Code(s): 297349870 Plan: 1. Continue to monitor pericardial output and will discontinue mediastinal chest tube when output is minimal. 2. Wean O2 as tolerated. Encourage incentive spirometry use 10 times every hour while awake. 3. Encourage continued smoking cessation. 4. Medical management per primary care service. 5. Pain control with ordered medications. 6. Increase activity, ambulate as tolerated. 7. Discontinue arterial line. 8. May transfer out of ICU to 6 E. selective care when bed available. 9. More recommendations to follow. Time with Patient: Greater than 30
[2017-12-10 09:37] LABS: INR 1.3 (<1.2); Prothrombin Time 12.4 sec (9.0-12.0)
[2017-12-10 10:56] VITALS: BMI 34.9
[2017-12-10 12:18] LABS: Glucose,Whole Blood 135 mg/dL (75-99)
[2017-12-10] MEDS ORDERED: RX INFO: IV CONTRAST WAS GIVEN 1 EACH MISC MISCELLANE PRN (12:18)
--- NOTE | 2017-12-10 12:26 | P.PN ---
Subjective Progress Note Date: 12/10/17 HPI: Van Puckett is a 62 y.o. female who presented emergency department complaining of generalized weakness and fatigue. The patient states she was at [facility] last week and was diagnosed with a PE and a right upper lobe lung mass. She was transferred to [facility] and was told she would need bronchoscopy and biopsy as an outpatient. She was also scheduled for a PET scan today but did not go because she wasn't feeling well. She also notes her blood sugars have been very elevated and she is a diabetic. She states normally her blood sugars are well controlled. She was on Lovenox for the PE, but states she stopped taking it on 12/06/2017 because she thought the fatigue was due to the medication. She was admitted to [facility] for further workup. She is a former smoker, 1-2 pack per day for 35 years. She quit smoking in 2004. She states she has had some nausea and vomiting. No diarrhea or abdominal pain. But states she was constipated. No fevers or chills at home. She does cough. She states she has been unable to eat and has been very light headed. She denies a history of COPD or asthma. She does not use any inhalers or nebulizer at home. She does not have home oxygen. 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 She denies any inhalation exposures. Apparently the patient did have a reading today of her Echo at [facility] which revealed a large pericardial effusion consistent with pericardial tamponade and was transferred here to [facility] emergently for possible pericardial window and workup with cardiothoraic surgeon. Upon examination the patient is resting in bed in ICU and is on supplemental oxygen via nasal cannula. She continues to have shortness of breath cough, her dyspnea has become worse over the past 24 hours. 12/10/17- vision seen examined and evaluated today in the intensive care unit. The patient appears depressed and her condition is discussed with her at length. She has been forgetful and had some confusion over the past few days as to what has happened with her medically. Her chest x-ray was reviewed and continues to show the persistent right upper lobe mass consolidation. She did undergo a pericardial window yesterday with cardiothoracic surgery. She currently has a chest tube in place. She has had 30-50 mL of drainage overnight. She has been resting up in bed on room air. Does have shortness of breath and cough. We will order a CT of the brain with and without contrast to evaluate for any metastases. Objective - Vital Signs Vital signs: Vital Signs Temp 97.5 F L 12/10/17 08:00 Pulse 72 12/10/17 08:00 Resp 16 12/10/17 08:00 BP 86/57 12/10/17 08:00 Pulse Ox 98 12/10/17 08:20 Intake & Output 12/09/17 12/10/17 12/10/17 18:59 06:59 18:59 Intake Total 1650 1300 340 Output Total 570 861 109 Balance 1080 439 231 Weight 105 kg 107.2 kg 107.2 kg Intake: IV 1050 1200 100 Sodium Chloride 0.9% 1, 1200 100 000 ml @ 100 mls/hr IV . Q10H [facility] Rx#:[id number] Intake, IV Titration 600 100 Amount Sodium Chloride 0.9% 1, 600 100 000 ml @ 100 mls/hr IV . Q10H [facility] Rx#:[id number] Oral 240 Output: Chest Tube Drainage 61 9 medistinal 61 9 Drainage 45 chest 45 Urine 500 800 100 Estimated Blood Loss 25 Other: Voiding Method Bedside Commode Bedside Commode # Voids 1 ABP, PAP, CO, CI - Last Documented Arterial Blood Pressure 124/59 - Exam GENERAL EXAM: Alert, tired, depression, comfortable in no apparent distress. HEAD: Normocephalic. EYES: Normal reaction of pupils, equal size. NOSE: Clear with pink turbinates. THROAT: No erythema or exudates. NECK: No masses, mild JVD distention. CHEST: No chest wall deformity. Chest tube in place. LUNGS: Equal air entry with no crackles, wheeze, rhonchi or dullness. Bases diminished CVS: S1 and S2 slighlty muffled, with no audible mumurs, regular rhythm. ABDOMEN: No hepatosplenomegaly, normal bowel sounds, no guarding or rigidity. EXTREMITIES: No edema noted, pedal pulses palpable. CENTRAL NERVOUS SYSTEM: No focal deficits, tone is normal in all 4 extremities. - Labs CBC & Chem 7: 12/10/17 04:20 12/10/17 04:20 Labs: Abnormal Lab Results - Last 24 Hours (Table) 12/09/17 12/09/17 12/09/17 Range/Units 13:28 13:28 13:28 WBC 12.6 H (3.8-10.6) k/uL RBC 3.15 L (3.80-5.40) m/uL Hgb 9.3 L (11.4-16.0) gm/dL Hct 27.6 L (34.0-46.0) % Neutrophils # 10.1 H (1.3-7.7) k/uL Lymphocytes # (1.0-4.8) k/uL Retic Count (0.5-2.0) % PT 13.5 H (9.0-12.0) sec INR 1.4 H (<1.2) Sodium 124 L (137-145) mmol/L Chloride 92 L (98-107) mmol/L BUN 30 H (7-17) mg/dL Glucose 128 H (74-99) mg/dL POC Glucose (mg/dL) (75-99) mg/dL Hemoglobin A1c (4.0-6.0) % Calcium (8.4-10.2) mg/dL Magnesium 2.5 H (1.6-2.3) mg/dL AST 731 H (14-36) U/L ALT 1172 H (9-52) U/L Alkaline Phosphatase 209 H (38-126) U/L Lactate Dehydrogenase (313-618) U/L Total Protein 5.5 L (6.3-8.2) g/dL Albumin 3.1 L (3.5-5.0) g/dL 12/09/17 12/09/17 12/09/17 Range/Units 13:28 16:50 21:28 WBC (3.8-10.6) k/uL RBC (3.80-5.40) m/uL Hgb (11.4-16.0) gm/dL Hct (34.0-46.0) % Neutrophils # (1.3-7.7) k/uL Lymphocytes # (1.0-4.8) k/uL Retic Count (0.5-2.0) % PT (9.0-12.0) sec INR (<1.2) Sodium (137-145) mmol/L Chloride (98-107) mmol/L BUN (7-17) mg/dL Glucose (74-99) mg/dL POC Glucose (mg/dL) 144 H 105 H (75-99) mg/dL Hemoglobin A1c 10.1 H (4.0-6.0) % Calcium (8.4-10.2) mg/dL Magnesium (1.6-2.3) mg/dL AST (14-36) U/L ALT (9-52) U/L Alkaline Phosphatase (38-126) U/L Lactate Dehydrogenase (313-618) U/L Total Protein (6.3-8.2) g/dL Albumin (3.5-5.0) g/dL 12/10/17 12/10/17 12/10/17 Range/Units 04:20 04:20 09:05 WBC (3.8-10.6) k/uL RBC 3.03 L (3.80-5.40) m/uL Hgb 8.7 L (11.4-16.0) gm/dL Hct 26.8 L (34.0-46.0) % Neutrophils # (1.3-7.7) k/uL Lymphocytes # 0.9 L (1.0-4.8) k/uL Retic Count 2.9 H (0.5-2.0) % PT (9.0-12.0) sec INR (<1.2) Sodium 135 L (137-145) mmol/L Chloride (98-107) mmol/L BUN 21 H (7-17) mg/dL Glucose (74-99) mg/dL POC Glucose (mg/dL) (75-99) mg/dL Hemoglobin A1c (4.0-6.0) % Calcium 8.0 L (8.4-10.2) mg/dL Magnesium 2.5 H (1.6-2.3) mg/dL AST 272 H (14-36) U/L ALT 723 H (9-52) U/L Alkaline Phosphatase 159 H (38-126) U/L Lactate Dehydrogenase (313-618) U/L Total Protein 4.7 L (6.3-8.2) g/dL Albumin 2.4 L (3.5-5.0) g/dL 12/10/17 12/10/17 12/10/17 Range/Units 09:05 09:05 12:16 WBC (3.8-10.6) k/uL RBC (3.80-5.40) m/uL Hgb (11.4-16.0) gm/dL Hct (34.0-46.0) % Neutrophils # (1.3-7.7) k/uL Lymphocytes # (1.0-4.8) k/uL Retic Count (0.5-2.0) % PT 12.4 H (9.0-12.0) sec INR 1.3 H (<1.2) Sodium (137-145) mmol/L Chloride (98-107) mmol/L BUN (7-17) mg/dL Glucose (74-99) mg/dL POC Glucose (mg/dL) 135 H (75-99) mg/dL Hemoglobin A1c (4.0-6.0) % Calcium (8.4-10.2) mg/dL Magnesium (1.6-2.3) mg/dL AST (14-36) U/L ALT (9-52) U/L Alkaline Phosphatase (38-126) U/L Lactate Dehydrogenase 870 H (313-618) U/L Total Protein (6.3-8.2) g/dL Albumin (3.5-5.0) g/dL Assessment and Plan Assessment: Assessment: Large pericardial effusion with cardiac tamponade Pulmonary embolism Right upper lobe lung mass History of tobacco abuse, in remission Hyponatremia, likely 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 Dehydration Diabetes mellitus type 2, uncontrolled Hypertension UTI POA Generalized weakness and fatigue Noncompliance with anticoagulation Elevated transaminases suspect liver metastasis EtOH use Normochromic, normocytic anemia Plan: Patient can be downgraded from the intensive care unit Obtain a CT of the brain to evaluate for any metastases Cardiothoracic on consult O2 to maintain saturation > or = 90% Duonebs and Pulmicort Gentle IVF hydration Urine culture and ABX Blood sugar control Lovenox on hold for surgery, restart per cardiothoracic recommendations GI prophylaxis: Pepcid Lower extremity doppler US negative for DVT Echocardiogram reviewed E of 55-60% with a large pericardial effusion consistent with pericardial tamponade Will schedule for outpatient PET scan and biopsy Obtain records from [facility] and [facility] Continued smoking cessation Abdominal ultrasound reviewed, consider CT to assess for possible metastatic disease Incentive spirometry and pulmonary hygiene Add-on PT and OT increase activity as tolerated Thank you for this consultation. We will continue to follow along. I performed an examination of the patient and discussed their management with the nurse practitioner. I have reviewed the nurse practitioner's note and agree with the documented findings and plan of care.
--- NOTE | 2017-12-10 12:53 | P.PN ---
Subjective Progress Note Date: 12/10/17 This is a 62-year-old female with Dr. Hugo medical history significant for hypertension and hypertensive cardio vascular disease, hyperlipidemia, diabetes mellitus type 2, patient was fine up until 2-3 weeks ago according her when she developed significant fatigue and tiredness she was hospitalized at [facility] followed by [facility] and she was found to have a right upper lobe mass and computed tomography scan of the chest was suspicious for pulmonary embolism as well and the patient was started on Lovenox 1 mg per KG every 12 hours and she was sent home patient became quite fatigued and tired and extreme short of breath she ended up coming to the emergency department at [facility] with the above symptoms and she was admitted to the hospital after she was found to have hyperglycemia and at about the same time she was found to have significant hyponatremia thought to be due to the syndrome of inappropriate ADH secretion SIADH due to possible small cell lung cancer, ultrasound of the abdomen at that time was done and that showed possible liver metastases echocardiogram was done and that surprisingly showed significant large pericardial effusion with pericardial tamponade patient was transferred urgently to the intensive care unit at [facility] and she was seen in consultation by cardiothoracic surgery and she is scheduled to go for pericardial window her on today. 12/10: Patient is status post subxiphoid pericardiotomy and transesophageal echocardiogram. Bloody fluid was retrieved and sent for cytology and piece of pericardium was sent for pathology.. A right chest tube was placed in the posterior pericardium. Repeat chest x-ray this morning shows persistent right upper lobe masslike consolidation. This could represent pneumonia in the appropriate clinical setting. Follow-up to ensure no underlying mass. Patient is followed by Dr. parker. There is plan for outpatient PET scan. Patient is pulse oxing 100% on 2 L nasal cannula. Otherwise vital signs have been stable. White count is down to 8.6, hemoglobin 8.7, sodium is improved to 135. Her blood glucose running between 88 and 144. Liver function tests are improved from previous. Patient has been seen by oncology. Patient states that she is feeling much improved today. She states her breathing is better. Her appetite and drinking is improved. Her chest pain is controlled. Plan is to hold anticoagulation for another 24 hours. Objective - Vital Signs Vital signs: Vital Signs Temp 97.5 F L 12/10/17 04:00 Pulse 69 12/10/17 06:00 Resp 17 12/10/17 06:00 BP 121/58 12/10/17 06:00 Pulse Ox 100 12/10/17 06:00 Intake & Output 12/09/17 12/10/17 12/10/17 18:59 06:59 18:59 Intake Total 1650 1300 Output Total 570 861 Balance 1080 439 Weight 105 kg 107.2 kg Intake: IV 1050 1200 Sodium Chloride 0.9% 1, 1200 000 ml @ 100 mls/hr IV . Q10H [facility] Rx#:[id number] Intake, IV Titration 600 100 Amount Sodium Chloride 0.9% 1, 600 100 000 ml @ 100 mls/hr IV . Q10H [facility] Rx#:[id number] Output: Chest Tube Drainage 61 medistinal 61 Drainage 45 chest 45 Urine 500 800 Estimated Blood Loss 25 Other: Voiding Method Bedside Commode # Voids 1 ABP, PAP, CO, CI - Last Documented Arterial Blood Pressure 108/47 - Exam General appearance: average body habitus, mild distress - EENT Eyes: EOMI, PERRLA, dentition normal, scleral icterus, normal appearance ENT: hearing grossly normal, NA/AT, normal oropharynx, no thrush - Neck Neck: no lymphadenopathy, normal ROM, no rigidity, no stridor, no thyromegaly Carotids: bilateral: upstroke normal - Respiratory Respiratory: bilateral: diminished, negative: dullness, rales, rhonchi, wheezing , prolonged expiration, prolonged inspiration - Cardiovascular Rhythm: regular Heart sounds: normal: S1, S2 Abnormal Heart Sounds: systolic murmur - Gastrointestinal General gastrointestinal: normal bowel sounds, soft, tenderness (right upper quadrant.) - Integumentary Integumentary: normal, normal turgor - Neurologic Neurologic: CNII-XII intact - Musculoskeletal Musculoskeletal: gait normal, generalized weakness, strength equal bilaterally - Psychiatric Psychiatric: A&O x's 3, appropriate affect, intact judgment & insight - Labs CBC & Chem 7: 12/10/17 04:20 12/10/17 04:20 Labs: Abnormal Lab Results - Last 24 Hours (Table) 12/09/17 12/09/17 12/09/17 Range/Units 13:28 13:28 13:28 WBC 12.6 H (3.8-10.6) k/uL RBC 3.15 L (3.80-5.40) m/uL Hgb 9.3 L (11.4-16.0) gm/dL Hct 27.6 L (34.0-46.0) % Neutrophils # 10.1 H (1.3-7.7) k/uL Lymphocytes # (1.0-4.8) k/uL PT 13.5 H (9.0-12.0) sec INR 1.4 H (<1.2) Sodium 124 L (137-145) mmol/L Chloride 92 L (98-107) mmol/L BUN 30 H (7-17) mg/dL Glucose 128 H (74-99) mg/dL POC Glucose (mg/dL) (75-99) mg/dL Hemoglobin A1c (4.0-6.0) % Calcium (8.4-10.2) mg/dL Magnesium 2.5 H (1.6-2.3) mg/dL AST 731 H (14-36) U/L ALT 1172 H (9-52) U/L Alkaline Phosphatase 209 H (38-126) U/L Total Protein 5.5 L (6.3-8.2) g/dL Albumin 3.1 L (3.5-5.0) g/dL 12/09/17 12/09/17 12/09/17 Range/Units 13:28 16:50 21:28 WBC (3.8-10.6) k/uL RBC (3.80-5.40) m/uL Hgb (11.4-16.0) gm/dL Hct (34.0-46.0) % Neutrophils # (1.3-7.7) k/uL Lymphocytes # (1.0-4.8) k/uL PT (9.0-12.0) sec INR (<1.2) Sodium (137-145) mmol/L Chloride (98-107) mmol/L BUN (7-17) mg/dL Glucose (74-99) mg/dL POC Glucose (mg/dL) 144 H 105 H (75-99) mg/dL Hemoglobin A1c 10.1 H (4.0-6.0) % Calcium (8.4-10.2) mg/dL Magnesium (1.6-2.3) mg/dL AST (14-36) U/L ALT (9-52) U/L Alkaline Phosphatase (38-126) U/L Total Protein (6.3-8.2) g/dL Albumin (3.5-5.0) g/dL 12/10/17 12/10/17 Range/Units 04:20 04:20 WBC (3.8-10.6) k/uL RBC 3.03 L (3.80-5.40) m/uL Hgb 8.7 L (11.4-16.0) gm/dL Hct 26.8 L (34.0-46.0) % Neutrophils # (1.3-7.7) k/uL Lymphocytes # 0.9 L (1.0-4.8) k/uL PT (9.0-12.0) sec INR (<1.2) Sodium 135 L (137-145) mmol/L Chloride (98-107) mmol/L BUN 21 H (7-17) mg/dL Glucose (74-99) mg/dL POC Glucose (mg/dL) (75-99) mg/dL Hemoglobin A1c (4.0-6.0) % Calcium 8.0 L (8.4-10.2) mg/dL Magnesium 2.5 H (1.6-2.3) mg/dL AST 272 H (14-36) U/L ALT 723 H (9-52) U/L Alkaline Phosphatase 159 H (38-126) U/L Total Protein 4.7 L (6.3-8.2) g/dL Albumin 2.4 L (3.5-5.0) g/dL Assessment and Plan Plan: 1. Large pericardial effusion possibly metastatic due to the possible small cell lung cancer with cardiac tamponade. Patient is scheduled to go to the OR for pericardial window with Dr. Bryant, for diagnostic and therapeutic purposes with placement of a drain in there, send the fluid for cytology Gram stain and culture, patient would be admitted to intensive care unit, she will be seen in consultation by cardiology as well as by pulmonary and critical care. Await cytology and pathology report. Oncology consult is appreciated. 2. Right upper lobe mass suggestive of the lung cancer possibly small cell lung cancer. We need to obtain a tissue biopsy consult hematology oncology Dr. Guzman. 3. Hyponatremia secondary to the syndrome of inappropriate ADH secretion. Continue fluid restriction to 1000 mL every 24 hours, continue IV fluid for now , until after the patient is out of the OR, monitor the patient's sodium on a daily basis. 4. Diabetes mellitus type 2. Start the patient on Lantus 25 units at bedtime along with the Humalog 10 units before each meal, BGM before each meal and at bedtime. 5. Hypertension and hypertensive cardiovascular disease. Hold off antihypertensive medicine until after the surgery. 6. Anemia of chronic disease as well as possible acute blood loss from tamponade. Monitor the patient's CBC. 7. Elevated liver function tests likely related to liver metastases. Patient will need to have a PET scan. 8. Pulmonary embolism. Continue patient on Lovenox 1 mg per KG subcutaneous every 12 hours after the surgery- hold for another 24 hours. 9. Patient is full code. Discharge plan: Most likely return home Impression and plan of care have been directed as dictated by the signing physician. Karen Ghotra nurse practitioner acting as scribe for signing physician.
[2017-12-10] MEDS: IPRATROPIUM-ALBUTEROL 3 ML NEB INHALATION SCH ×2 (13:00→19:37)
[2017-12-10] MEDS: SODIUM CHLORIDE 0.9% 1,000 ML IV SCH ×2 (14:14→22:18)
[2017-12-10 16:45] LABS: Glucose,Whole Blood 169 mg/dL (75-99)
[2017-12-10 17:50] LABS: Folate, Serum 15.1 ng/mL; Iron Saturation 5.88 (12.00-45.00)
--- NOTE | 2017-12-10 19:13 | ECHOF ---
Referral Reason:s/p pericardial window MEASUREMENTS -------- HEIGHT: 175.3 cm WEIGHT: 107.0 kg BP: 124/59 RVIDd: 3.4 cm (< 3.3) IVSd: 1.3 cm (0.6 - 1.1) LVIDd: 3.6 cm (3.9 - 5.3) LVPWd: 1.3 cm (0.6 - 1.1) IVSs: 1.4 cm LVIDs: 2.4 cm LVPWs: 1.4 cm LAESV Index (A-L): 28.04 ml/m Ao Diam: 2.7 cm (2.0 - 3.7) LA Diam: 4.3 cm (2.7 - 3.8) MV E Reagan: 1.13 m/s MV DecT: 218 ms MV A Reagan: 0.74 m/s MV E/A Ratio: 1.53 RAP: 5.00 mmHg RVSP: 10.60 mmHg FINDINGS -------- Sinus rhythm. This was a technically adequate study. No subcostals due to surgery The left ventricular size is normal. There is mild concentric left ventricular hypertrophy. Overa ll left ventricular systolic function is normal with, an EF between 55 - 60 %. The right ventricle is mildly enlarged. Normal LA size by volume 22+/-6 ml/m2. The right atrium is normal in size. The aortic valve is trileaflet, and appears structurally normal. No aortic stenosis or regurgitation. The mitral valve leaflets are mildly thickened. Mild mitral regurgitation is present. Trace tricuspid regurgitation present. Right ventricular systolic pressure is normal at < 35 mmHg. There is no evidence of pulmonary hypertension. The pulmonic valve was not well visualized. There is no pulmonic regurgitation present. The aortic root size is normal. IVC Not well visulized. There is a small, generalized pericardial effusion present. CONCLUSIONS -------- 1. Sinus rhythm. 2. This was a technically adequate study. 3. No subcostals due to surgery 4. The left ventricular size is normal. 5. There is mild concentric left ventricular hypertrophy. 6. Overall left ventricular systolic function is normal with, an EF between 55 - 60 %. 7. The right ventricle is mildly enlarged. 8. Normal LA size by volume 22+/-6 ml/m2. 9. The aortic valve is trileaflet, and appears structurally normal. No aortic stenosis or regurgitati on. 10. The mitral valve leaflets are mildly thickened. 11. Mild mitral regurgitation is present. 12. Trace tricuspid regurgitation present. 13. Right ventricular systolic pressure is normal at < 35 mmHg. 14. There is no pulmonic regurgitation present. 15. The aortic root size is normal. 16. IVC Not well visulized. 17. There is a small, generalized pericardial effusion present. [employer]: Manuelito Freitas RDCS
[2017-12-10] MEDS: BUDESONIDE 0.5 MG/2 ML NEBU INHALATION SCH (19:37)
[2017-12-10 20:35] LABS: Glucose,Whole Blood 151 mg/dL (75-99)
--- NOTE | 2017-12-10 23:05 | PN ---
PROGRESS NOTE Mrs. Van Puckett is a lady who was transferred from [facility] after evaluation by Dr. Davis for a pericardial window that was performed. This lady has a history of probably metastatic cancer, although we do not have a specific tissue diagnosis for her. She is being closely followed by Dr. Monie Myers from a pulmonary standpoint. Patient has a diagnosis of pulmonary embolism, right upper lobe mass and significant pericardial effusion. Following the drainage of over a liter of fluid, she actually feels better. She is sitting up and talking, has no shortness of breath. She has also a history of smoking which she quit in 2004. I am recommending that we will obtain a repeat echocardiogram today to see the improvement in the pericardial fluid and continue her other management. I believe pulmonology is following her closely and hoping to have a tissue diagnosis. Her blood pressure and heart rate are good and echo report from [facility] suggests normal LV function. We will therefore repeat echo and follow her and see how she does. Vital signs are stable. Blood pressure is good. S1, S2 heard normally. Lungs reveal diminished air entry. Abdomen is soft. Lower extremities reveal diminished pulses. Central nervous system is normal. Plan is to follow her pericardial effusion with a repeat echocardiogram today and see how she does. MMODL / IJN: [id number] /
[2017-12-11] MEDS: KETOROLAC 30 MG/ML 1 ML VIAL IVP SCH ×5 (00:15→23:24)
[2017-12-11 04:30] LABS: Basophils % (A) 0 %; Eosinophils # (A) 0.2 k/uL (0-0.7); Eosinophils % (A) 4 %; HCT 27.8 % (34.0-46.0); HGB 8.9 gm/dL (11.4-16.0); Lymphocytes % (A) 15 %; MCH 28.4 pg (25.0-35.0); MCHC 32.1 g/dL (31.0-37.0); MCV 88.4 fL (80.0-100.0); Mean Platelet Volume 8.6; Monocytes # (A) 0.6 k/uL (0-1.0); Monocytes % (A) 9 %; Neutrophils # (A) 4.7 k/uL (1.3-7.7); Neutrophils % (A) 71 %; Platelet Count 220 k/uL (150-450); RBC 3.14 m/uL (3.80-5.40); RDW 14.1 % (11.5-15.5); WBC 6.7 k/uL (3.8-10.6)
[2017-12-11 04:40] LABS: ALT 447 U/L (9-52); AST 101 U/L (14-36); Albumin 2.7 g/dL (3.5-5.0); Alkaline Phosphatase 140 U/L (38-126); Anion Gap 10 mmol/L; Blood Urea Nitrogen 11 mg/dL (7-17); Calcium 8.4 mg/dL (8.4-10.2); Carbon Dioxide 24 mmol/L (22-30); Chloride 103 mmol/L (98-107); Glucose 127 mg/dL (74-99); Magnesium 2.4 mg/dL (1.6-2.3); Potassium 3.6 mmol/L (3.5-5.1); Sodium 137 mmol/L (137-145); Total Bilirubin 0.3 mg/dL (0.2-1.3); Total Protein 4.9 g/dL (6.3-8.2)
[2017-12-11] MEDS: SODIUM CHLORIDE 0.9% 1,000 ML IV SCH ×2 (05:45→16:11)
[2017-12-11 05:53] LABS: Glucose,Whole Blood 135 mg/dL (75-99)
--- NOTE | 2017-12-11 07:10 | XR ---
EXAMINATION TYPE: XR chest 1V portable DATE OF EXAM: 12/11/2017 CLINICAL HISTORY: Difficulty breathing post pericardial window progress study. TECHNIQUE: Single AP portable upright view of the chest is obtained. COMPARISON: Chest x-ray from one day earlier and older study December 09, 2017. FINDINGS: There is persistent mild cardiomegaly with small bilateral pleural effusions and associate d bibasilar atelectasis and/or infiltrate. There is stable lateral right upper lobe masslike consolid ation. There is no new focal airspace opacity or pneumothorax seen bilaterally. Osseous structures ar e intact. IMPRESSION: Overall stable findings, mild cardiomegaly with small bilateral pleural effusions and a ssociated bibasilar atelectasis and/or infiltrate. Masslike consolidation lateral right upper lobe is redemonstrated. Clinical correlation advised.
[2017-12-11 07:14] LABS: Glucose,Whole Blood 130 mg/dL (75-99)
[2017-12-11] MEDS: INSULIN ASPART 100 UNIT/ML 1 ML 10 ML VIAL SQ SCH ×4 (08:03→20:54)
[2017-12-11] MEDS: PANTOPRAZOLE 40 MG TABLET PO SCH (08:07)
[2017-12-11 08:13] LABS: INR 1.2 (<1.2); Partial Thromboplastin Time 23.7 sec (22.0-30.0); Prothrombin Time 11.3 sec (9.0-12.0)
[2017-12-11] MEDS: BUDESONIDE 0.5 MG/2 ML NEBU INHALATION SCH ×2 (08:34→19:48)
[2017-12-11] MEDS: IPRATROPIUM-ALBUTEROL 3 ML NEB INHALATION SCH ×3 (08:34→19:48)
--- NOTE | 2017-12-11 09:53 | P.PN ---
Subjective Progress Note Date: 12/11/17 HPI: Van Puckett is a 62 y.o. female who presented emergency department complaining of generalized weakness and fatigue. The patient states she was at [facility] last week and was diagnosed with a PE and a right upper lobe lung mass. She was transferred to [facility] and was told she would need bronchoscopy and biopsy as an outpatient. She was also scheduled for a PET scan today but did not go because she wasn't feeling well. She also notes her blood sugars have been very elevated and she is a diabetic. She states normally her blood sugars are well controlled. She was on Lovenox for the PE, but states she stopped taking it on 12/06/2017 because she thought the fatigue was due to the medication. She was admitted to [facility] for further workup. She is a former smoker, 1-2 pack per day for 35 years. She quit smoking in 2004. She states she has had some nausea and vomiting. No diarrhea or abdominal pain. But states she was constipated. No fevers or chills at home. She does cough. She states she has been unable to eat and has been very light headed. She denies a history of COPD or asthma. She does not use any inhalers or nebulizer at home. She does not have home oxygen. 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 She denies any inhalation exposures. Apparently the patient did have a reading today of her Echo at [facility] which revealed a large pericardial effusion consistent with pericardial tamponade and was transferred here to [facility] emergently for possible pericardial window and workup with cardiothoraic surgeon. Upon examination the patient is resting in bed in ICU and is on supplemental oxygen via nasal cannula. She continues to have shortness of breath cough, her dyspnea has become worse over the past 24 hours. 12/10/17- vision seen examined and evaluated today in the intensive care unit. The patient appears depressed and her condition is discussed with her at length. She has been forgetful and had some confusion over the past few days as to what has happened with her medically. Her chest x-ray was reviewed and continues to show the persistent right upper lobe mass consolidation. She did undergo a pericardial window yesterday with cardiothoracic surgery. She currently has a chest tube in place. She has had 30-50 mL of drainage overnight. She has been resting up in bed on room air. Does have shortness of breath and cough. We will order a CT of the brain with and without contrast to evaluate for any metastases. 12/11/17- patient is being seen examined and evaluated today on rounds. She is resting up in bed on room air. States she did utilize 2 L of supplemental oxygen at night. She states she did have some lower saturations while sleeping. She could possibly have some sleep apnea and would benefit from a sleep study upon discharge. All labs and reports have been reviewed today. Chest tube is in place and drained around 40 mL in the last 24 hours. Chest x- ray was reviewed and does show cardiomegaly and small bilateral effusion/ infiltrate the masslike consolidation is redemonstrated. Her repeat echo yesterday did show an EF of 55-60% with a small generalized pericardial effusion. Still is noted to have some forgetfulness in short-term memory loss. A CT of the brain was ordered yesterday to rule out metastases however the patient and the refused to have it done at this time. Objective - Vital Signs Vital signs: Vital Signs Temp 98 F 12/11/17 08:00 Pulse 82 12/11/17 09:00 Resp 16 12/11/17 09:00 BP 116/72 12/11/17 09:00 Pulse Ox 96 12/11/17 09:00 Intake & Output 12/10/17 12/11/17 12/11/17 18:59 06:59 18:59 Intake Total 1380 600 350 Output Total 628 16 Balance 752 584 350 Weight 107.2 kg 108.2 kg Intake: IV 140 Sodium Chloride 0.9% 1, 140 000 ml @ 100 mls/hr IV . Q10H [facility] Rx#:[id number] Oral 1240 600 350 Output: Chest Tube Drainage 28 15 medistinal 28 15 Urine 600 1 Other: Voiding Method Bedside Commode Bedside Commode Bedside Commode # Voids 0 0 ABP, PAP, CO, CI - Last Documented Arterial Blood Pressure 114/63 - Exam GENERAL EXAM: Alert, tired, depression, comfortable in no apparent distress. HEAD: Normocephalic. EYES: Normal reaction of pupils, equal size. NOSE: Clear with pink turbinates. THROAT: No erythema or exudates. NECK: No masses, mild JVD distention. CHEST: No chest wall deformity. Chest tube in place. LUNGS: Equal air entry with no crackles, wheeze, rhonchi or dullness. Bases diminished CVS: S1 and S2 slighlty muffled, with no audible mumurs, regular rhythm. ABDOMEN: No hepatosplenomegaly, normal bowel sounds, no guarding or rigidity. EXTREMITIES: No edema noted, pedal pulses palpable. CENTRAL NERVOUS SYSTEM: No focal deficits, tone is normal in all 4 extremities. - Labs CBC & Chem 7: 12/11/17 04:14 12/11/17 04:14 Labs: Abnormal Lab Results - Last 24 Hours (Table) 12/10/17 12/10/17 12/10/17 Range/Units 09:05 09:05 12:16 RBC (3.80-5.40) m/uL Hgb (11.4-16.0) gm/dL Hct (34.0-46.0) % INR (<1.2) Creatinine (0.52-1.04) mg/dL Glucose (74-99) mg/dL POC Glucose (mg/dL) 135 H (75-99) mg/dL Magnesium (1.6-2.3) mg/dL Iron 15 L (50-170) ug/dL Iron Saturation 5.88 L (12.00-45.00) Ferritin 541.0 H (10.0-291.0) ng/mL AST (14-36) U/L ALT (9-52) U/L Alkaline Phosphatase (38-126) U/L Lactate Dehydrogenase 870 H (313-618) U/L Total Protein (6.3-8.2) g/dL Albumin (3.5-5.0) g/dL Vitamin B12 2260.0 H (200.0-944.0) pg/mL 12/10/17 12/10/17 12/11/17 Range/Units 16:43 20:33 04:14 RBC 3.14 L (3.80-5.40) m/uL Hgb 8.9 L (11.4-16.0) gm/dL Hct 27.8 L (34.0-46.0) % INR (<1.2) Creatinine (0.52-1.04) mg/dL Glucose (74-99) mg/dL POC Glucose (mg/dL) 169 H 151 H (75-99) mg/dL Magnesium (1.6-2.3) mg/dL Iron (50-170) ug/dL Iron Saturation (12.00-45.00) Ferritin (10.0-291.0) ng/mL AST (14-36) U/L ALT (9-52) U/L Alkaline Phosphatase (38-126) U/L Lactate Dehydrogenase (313-618) U/L Total Protein (6.3-8.2) g/dL Albumin (3.5-5.0) g/dL Vitamin B12 (200.0-944.0) pg/mL 12/11/17 12/11/17 12/11/17 Range/Units 04:14 05:50 07:12 RBC (3.80-5.40) m/uL Hgb (11.4-16.0) gm/dL Hct (34.0-46.0) % INR (<1.2) Creatinine 0.50 L (0.52-1.04) mg/dL Glucose 127 H (74-99) mg/dL POC Glucose (mg/dL) 135 H 130 H (75-99) mg/dL Magnesium 2.4 H (1.6-2.3) mg/dL Iron (50-170) ug/dL Iron Saturation (12.00-45.00) Ferritin (10.0-291.0) ng/mL AST 101 H (14-36) U/L ALT 447 H (9-52) U/L Alkaline Phosphatase 140 H (38-126) U/L Lactate Dehydrogenase (313-618) U/L Total Protein 4.9 L (6.3-8.2) g/dL Albumin 2.7 L (3.5-5.0) g/dL Vitamin B12 (200.0-944.0) pg/mL 12/11/17 Range/Units 07:44 RBC (3.80-5.40) m/uL Hgb (11.4-16.0) gm/dL Hct (34.0-46.0) % INR 1.2 H (<1.2) Creatinine (0.52-1.04) mg/dL Glucose (74-99) mg/dL POC Glucose (mg/dL) (75-99) mg/dL Magnesium (1.6-2.3) mg/dL Iron (50-170) ug/dL Iron Saturation (12.00-45.00) Ferritin (10.0-291.0) ng/mL AST (14-36) U/L ALT (9-52) U/L Alkaline Phosphatase (38-126) U/L Lactate Dehydrogenase (313-618) U/L Total Protein (6.3-8.2) g/dL Albumin (3.5-5.0) g/dL Vitamin B12 (200.0-944.0) pg/mL Assessment and Plan Assessment: Assessment: Large pericardial effusion with cardiac tamponade Pulmonary embolism Right upper lobe lung mass History of tobacco abuse, in remission Hyponatremia, likely 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 Dehydration Diabetes mellitus type 2, uncontrolled Hypertension UTI POA Generalized weakness and fatigue Noncompliance with anticoagulation Elevated transaminases suspect liver metastasis EtOH use Normochromic, normocytic anemia Cardiomegaly Plan: Patient can be downgraded from the intensive care unit Obtain a CT of the brain to evaluate for any metastases Cardiothoracic on consult O2 to maintain saturation > or = 90% Duonebs and Pulmicort Gentle IVF hydration ABX completed Blood sugar control Lovenox on hold for surgery, restart per cardiothoracic recommendations GI prophylaxis: Pepcid Lower extremity doppler US negative for DVT Orginal Echocardiogram reviewed EF of 55-60% with a large pericardial effusion consistent with pericardial tamponade Repeat echocardiogram post pericardial window reviewed EF of 55-60% with a small generalized pericardial effusion Will schedule for outpatient PET scan and biopsy Obtain records from [facility] and [facility] Continued smoking cessation Abdominal ultrasound reviewed, consider CT to assess for possible metastatic disease Incentive spirometry and pulmonary hygiene PT and OT increase activity as tolerated Thank you for this consultation. We will continue to follow along. I performed an examination of the patient and discussed their management with the nurse practitioner. I have reviewed the nurse practitioner's note and agree with the documented findings and plan of care.
--- NOTE | 2017-12-11 10:18 | P.PN ---
Subjective Progress Note Date: 12/11/17 Principal diagnosis: Large pericardial effusion. Previous medical history of diabetes mellitus, hypertension, previous tobacco dependence, recent diagnosis of right upper lobe lung mass and pulmonary embolism. POD #2 subxiphoid pericardiotomy with transesophageal echocardiogram Patient is currently sitting up in a chair in no acute distress. She does state that she felt better yesterday and then today, today she feels like she's been hit by a [place] truck. Objective - Vital Signs Vital signs: Vital Signs Temp 97.9 F 12/11/17 07:00 Pulse 69 12/11/17 07:00 Resp 16 12/11/17 07:00 BP 125/69 12/11/17 07:00 Pulse Ox 96 12/11/17 07:00 Intake & Output 12/10/17 12/11/17 12/11/17 18:59 06:59 18:59 Intake Total 1380 600 100 Output Total 628 16 Balance 752 584 100 Weight 107.2 kg 108.2 kg Intake: IV 140 Sodium Chloride 0.9% 1, 140 000 ml @ 100 mls/hr IV . Q10H [facility] Rx#:[id number] Oral 1240 600 100 Output: Chest Tube Drainage 28 15 medistinal 28 15 Urine 600 1 Other: Voiding Method Bedside Commode Bedside Commode # Voids 0 ABP, PAP, CO, CI - Last Documented Arterial Blood Pressure 114/63 - Constitutional General appearance: Present: cooperative, no acute distress, obese - Respiratory Details: Lungs sounds clear bilaterally. Respirations even, nonlabored. Currently room air with oxygen saturation 97%. Able to achieve 2000 mL on incentive spirometry. - Cardiovascular Details: S1, S2 present. Regular rate and rhythm, sinus rhythm on telemetry. Palpable peripheral pulses bilaterally. No edema present. No calf pain or tenderness noted. Mediastinal chest tube present to waterseal, 15 mL serous drainage overnight, 40 mL output in the last 24 hours. - Gastrointestinal Gastrointestinal Comment(s): Abdomen soft, nontender, nondistended. Active bowel sounds 4 quadrants. Tolerating diet. - Genitourinary Genitourinary Comment(s): Continues to void clear, yellow urine. - Integumentary Integumentary Comment(s): Skin is warm and dry with evidence of good perfusion. Mediastinal chest tube site covered with dry intact dressing. - Neurologic Neurologic: Present: CNII-XII intact - Musculoskeletal Musculoskeletal: Present: gait normal, strength equal bilaterally - Psychiatric Psychiatric Comment(s): Forgetful at times, frustrated Psychiatric: Present: A&O x's 3, appropriate affect - Allied health notes Allied health notes reviewed: nursing - Labs CBC & Chem 7: 12/11/17 04:14 12/11/17 04:14 Labs: Abnormal Lab Results - Last 24 Hours (Table) 12/10/17 12/10/17 12/10/17 Range/Units 09:05 09:05 09:05 RBC (3.80-5.40) m/uL Hgb (11.4-16.0) gm/dL Hct (34.0-46.0) % Retic Count 2.9 H (0.5-2.0) % PT 12.4 H (9.0-12.0) sec INR 1.3 H (<1.2) Creatinine (0.52-1.04) mg/dL Glucose (74-99) mg/dL POC Glucose (mg/dL) (75-99) mg/dL Magnesium (1.6-2.3) mg/dL AST (14-36) U/L ALT (9-52) U/L Alkaline Phosphatase (38-126) U/L Lactate Dehydrogenase 870 H (313-618) U/L Total Protein (6.3-8.2) g/dL Albumin (3.5-5.0) g/dL 12/10/17 12/10/17 12/10/17 Range/Units 12:16 16:43 20:33 RBC (3.80-5.40) m/uL Hgb (11.4-16.0) gm/dL Hct (34.0-46.0) % Retic Count (0.5-2.0) % PT (9.0-12.0) sec INR (<1.2) Creatinine (0.52-1.04) mg/dL Glucose (74-99) mg/dL POC Glucose (mg/dL) 135 H 169 H 151 H (75-99) mg/dL Magnesium (1.6-2.3) mg/dL AST (14-36) U/L ALT (9-52) U/L Alkaline Phosphatase (38-126) U/L Lactate Dehydrogenase (313-618) U/L Total Protein (6.3-8.2) g/dL Albumin (3.5-5.0) g/dL 12/11/17 12/11/17 12/11/17 Range/Units 04:14 04:14 05:50 RBC 3.14 L (3.80-5.40) m/uL Hgb 8.9 L (11.4-16.0) gm/dL Hct 27.8 L (34.0-46.0) % Retic Count (0.5-2.0) % PT (9.0-12.0) sec INR (<1.2) Creatinine 0.50 L (0.52-1.04) mg/dL Glucose 127 H (74-99) mg/dL POC Glucose (mg/dL) 135 H (75-99) mg/dL Magnesium 2.4 H (1.6-2.3) mg/dL AST 101 H (14-36) U/L ALT 447 H (9-52) U/L Alkaline Phosphatase 140 H (38-126) U/L Lactate Dehydrogenase (313-618) U/L Total Protein 4.9 L (6.3-8.2) g/dL Albumin 2.7 L (3.5-5.0) g/dL 12/11/17 Range/Units 07:12 RBC (3.80-5.40) m/uL Hgb (11.4-16.0) gm/dL Hct (34.0-46.0) % Retic Count (0.5-2.0) % PT (9.0-12.0) sec INR (<1.2) Creatinine (0.52-1.04) mg/dL Glucose (74-99) mg/dL POC Glucose (mg/dL) 130 H (75-99) mg/dL Magnesium (1.6-2.3) mg/dL AST (14-36) U/L ALT (9-52) U/L Alkaline Phosphatase (38-126) U/L Lactate Dehydrogenase (313-618) U/L Total Protein (6.3-8.2) g/dL Albumin (3.5-5.0) g/dL - Imaging and Cardiology Chest x-ray: report reviewed, image reviewed Echocardiogram reviewed Assessment and Plan (1) Mass of upper lobe of right lung Current Visit: Yes Status: Acute Code(s): R91.8 - OTHER NONSPECIFIC ABNORMAL FINDING OF LUNG FIELD SNOMED Code(s): 732735937 (2) History of pulmonary embolism Current Visit: No Status: Resolved Code(s): Z86.711 - PERSONAL HISTORY OF PULMONARY EMBOLISM SNOMED Code(s): 045226459 (3) Tobacco dependence in remission Current Visit: No Status: Resolved Code(s): F17.201 - NICOTINE DEPENDENCE, UNSPECIFIED, IN REMISSION SNOMED Code(s): 089105740 (4) Diabetes mellitus Current Visit: Yes Status: Chronic Code(s): E11.9 - TYPE 2 DIABETES MELLITUS WITHOUT COMPLICATIONS SNOMED Code(s): 40356953 (5) Hypertension Current Visit: Yes Status: Chronic Code(s): I10 - ESSENTIAL (PRIMARY) HYPERTENSION SNOMED Code(s): 93348635 (6) Pericardial effusion Current Visit: Yes Status: Acute Code(s): I31.3 - PERICARDIAL EFFUSION ( NONINFLAMMATORY) SNOMED Code(s): 779476284 Plan: 1. Will discontinue mediastinal chest tube today. 2. Okay to restart Lovenox from our standpoint. 3. Encourage incentive spirometry use 10 times every hour while awake. 4. Encourage continued smoking cessation. 5. Medical management per primary care service. 6. Pain control with ordered medications. 7. Increase activity, ambulate as tolerated. 8. May transfer out of ICU to 6 E. selective care when bed available. 9. Will see patient PRN. Time with Patient: Greater than 30
[2017-12-11 11:58] LABS: Glucose,Whole Blood 164 mg/dL (75-99)
--- NOTE | 2017-12-11 13:16 | P.PN ---
Subjective Progress Note Date: 12/11/17 This is a 62-year-old female with Dr. Hugo medical history significant for hypertension and hypertensive cardio vascular disease, hyperlipidemia, diabetes mellitus type 2, patient was fine up until 2-3 weeks ago according her when she developed significant fatigue and tiredness she was hospitalized at [facility] followed by [facility] and she was found to have a right upper lobe mass and computed tomography scan of the chest was suspicious for pulmonary embolism as well and the patient was started on Lovenox 1 mg per KG every 12 hours and she was sent home patient became quite fatigued and tired and extreme short of breath she ended up coming to the emergency department at [facility] with the above symptoms and she was admitted to the hospital after she was found to have hyperglycemia and at about the same time she was found to have significant hyponatremia thought to be due to the syndrome of inappropriate ADH secretion SIADH due to possible small cell lung cancer, ultrasound of the abdomen at that time was done and that showed possible liver metastases echocardiogram was done and that surprisingly showed significant large pericardial effusion with pericardial tamponade patient was transferred urgently to the intensive care unit at [facility] and she was seen in consultation by cardiothoracic surgery and she is scheduled to go for pericardial window her on today. 12/10: Patient is status post subxiphoid pericardiotomy and transesophageal echocardiogram. Bloody fluid was retrieved and sent for cytology and piece of pericardium was sent for pathology.. A right chest tube was placed in the posterior pericardium. Repeat chest x-ray this morning shows persistent right upper lobe masslike consolidation. This could represent pneumonia in the appropriate clinical setting. Follow-up to ensure no underlying mass. Patient is followed by Dr. parker. There is plan for outpatient PET scan. Patient is pulse oxing 100% on 2 L nasal cannula. Otherwise vital signs have been stable. White count is down to 8.6, hemoglobin 8.7, sodium is improved to 135. Her blood glucose running between 88 and 144. Liver function tests are improved from previous. Patient has been seen by oncology. Patient states that she is feeling much improved today. She states her breathing is better. Her appetite and drinking is improved. Her chest pain is controlled. Plan is to hold anticoagulation for another 24 hours. 12/11: Patient is feeling a lot better today she denies any chest pain, shortness breath, she has no abdominal pain, nausea, she is transferred to the stepdown unit however she is still hold in the ICU because there is no bed available. The cytology report is not back yet and the patient will probably go home tomorrow and follow up as an outpatient. We will start Lovenox tomorrow morning. Objective - Vital Signs Vital signs: Vital Signs Temp 98 F 12/11/17 08:00 Pulse 82 12/11/17 10:00 Resp 18 12/11/17 10:00 BP 126/64 12/11/17 10:00 Pulse Ox 99 12/11/17 10:00 Intake & Output 12/10/17 12/11/17 12/11/17 18:59 06:59 18:59 Intake Total 1380 600 350 Output Total 628 16 Balance 752 584 350 Weight 107.2 kg 108.2 kg Intake: IV 140 Sodium Chloride 0.9% 1, 140 000 ml @ 100 mls/hr IV . Q10H [facility] Rx#:[id number] Oral 1240 600 350 Output: Chest Tube Drainage 28 15 medistinal 28 15 Urine 600 1 Other: Voiding Method Bedside Commode Bedside Commode Bedside Commode # Voids 0 1 ABP, PAP, CO, CI - Last Documented Arterial Blood Pressure 114/63 - Exam - Exam General appearance: average body habitus, mild distress - EENT Eyes: EOMI, PERRLA, dentition normal, scleral icterus, normal appearance ENT: hearing grossly normal, NA/AT, normal oropharynx, no thrush - Neck Neck: no lymphadenopathy, normal ROM, no rigidity, no stridor, no thyromegaly Carotids: bilateral: upstroke normal - Respiratory Respiratory: bilateral: diminished, negative: dullness, rales, rhonchi, wheezing , prolonged expiration, prolonged inspiration - Cardiovascular Rhythm: regular Heart sounds: normal: S1, S2 Abnormal Heart Sounds: systolic murmur - Gastrointestinal General gastrointestinal: normal bowel sounds, soft, tenderness (right upper quadrant.) - Integumentary Integumentary: normal, normal turgor - Neurologic Neurologic: CNII-XII intact - Musculoskeletal Musculoskeletal: gait normal, generalized weakness, strength equal bilaterally - Psychiatric Psychiatric: A&O x's 3, appropriate affect, intact judgment & insight - Labs CBC & Chem 7: 12/11/17 04:14 12/11/17 04:14 Labs: Abnormal Lab Results - Last 24 Hours (Table) 12/10/17 12/10/17 12/10/17 Range/Units 09:05 12:16 16:43 RBC (3.80-5.40) m/uL Hgb (11.4-16.0) gm/dL Hct (34.0-46.0) % INR (<1.2) Creatinine (0.52-1.04) mg/dL Glucose (74-99) mg/dL POC Glucose (mg/dL) 135 H 169 H (75-99) mg/dL Magnesium (1.6-2.3) mg/dL Iron 15 L (50-170) ug/dL Iron Saturation 5.88 L (12.00-45.00) Ferritin 541.0 H (10.0-291.0) ng/mL AST (14-36) U/L ALT (9-52) U/L Alkaline Phosphatase (38-126) U/L Total Protein (6.3-8.2) g/dL Albumin (3.5-5.0) g/dL Vitamin B12 2260.0 H (200.0-944.0) pg/mL 12/10/17 12/11/17 12/11/17 Range/Units 20:33 04:14 04:14 RBC 3.14 L (3.80-5.40) m/uL Hgb 8.9 L (11.4-16.0) gm/dL Hct 27.8 L (34.0-46.0) % INR (<1.2) Creatinine 0.50 L (0.52-1.04) mg/dL Glucose 127 H (74-99) mg/dL POC Glucose (mg/dL) 151 H (75-99) mg/dL Magnesium 2.4 H (1.6-2.3) mg/dL Iron (50-170) ug/dL Iron Saturation (12.00-45.00) Ferritin (10.0-291.0) ng/mL AST 101 H (14-36) U/L ALT 447 H (9-52) U/L Alkaline Phosphatase 140 H (38-126) U/L Total Protein 4.9 L (6.3-8.2) g/dL Albumin 2.7 L (3.5-5.0) g/dL Vitamin B12 (200.0-944.0) pg/mL 12/11/17 12/11/17 12/11/17 Range/Units 05:50 07:12 07:44 RBC (3.80-5.40) m/uL Hgb (11.4-16.0) gm/dL Hct (34.0-46.0) % INR 1.2 H (<1.2) Creatinine (0.52-1.04) mg/dL Glucose (74-99) mg/dL POC Glucose (mg/dL) 135 H 130 H (75-99) mg/dL Magnesium (1.6-2.3) mg/dL Iron (50-170) ug/dL Iron Saturation (12.00-45.00) Ferritin (10.0-291.0) ng/mL AST (14-36) U/L ALT (9-52) U/L Alkaline Phosphatase (38-126) U/L Total Protein (6.3-8.2) g/dL Albumin (3.5-5.0) g/dL Vitamin B12 (200.0-944.0) pg/mL Assessment and Plan Assessment: Assessment and Plan Plan: 1. Large pericardial effusion possibly metastatic due to the possible small cell lung cancer with cardiac tamponade. Patient is scheduled to go to the OR for pericardial window with Dr. Bryant, for diagnostic and therapeutic purposes with placement of a drain in there, send the fluid for cytology Gram stain and culture, patient would be admitted to intensive care unit, she will be seen in consultation by cardiology as well as by pulmonary and critical care. Await cytology and pathology report. Oncology consult is appreciated. 2. Right upper lobe mass suggestive of the lung cancer possibly small cell lung cancer. We need to obtain a tissue biopsy consult hematology oncology Dr. Guzman. 3. Hyponatremia secondary to the syndrome of inappropriate ADH secretion. Continue fluid restriction to 1000 mL every 24 hours, continue IV fluid for now , until after the patient is out of the OR, monitor the patient's sodium on a daily basis. 4. Diabetes mellitus type 2. Start the patient on Lantus 25 units at bedtime along with the Humalog 10 units before each meal, BGM before each meal and at bedtime. 5. Hypertension and hypertensive cardiovascular disease. Hold off antihypertensive medicine until after the surgery. 6. Anemia of chronic disease as well as possible acute blood loss from tamponade. Monitor the patient's CBC. 7. Elevated liver function tests likely related to liver metastases. Patient will need to have a PET scan. 8. Pulmonary embolism. Continue patient on Lovenox 1 mg per KG subcutaneous every 12 hours after the surgery- hold for another 24 hours. 9. Patient is full code. Discharge plan: Most likely return home
--- NOTE | 2017-12-11 15:48 | PN ---
PROGRESS NOTE Mrs. Puckett is ICU. Mrs. Puckett is doing well. She is in sinus rhythm. She had a significant pericardial effusion that was drained by a window procedure doing well in this regard. There is no significant effusion on the echocardiogram. LV function is well preserved. S1, S2 heard normally. Short systolic murmur noted. Lungs reveal diminished air entry at both bases. Abdomen and lower extremity exam is unchanged. From a cardiac standpoint, she is quite stable. I will continue current medications and we will see her back as needed and also perform an echocardiogram on Thursday as a followup study to assess for any pericardial fluid reaccumulation. Discussed my thoughts in detail with the patient and . MMODL / IJN: [id number] /
[2017-12-11 17:02] LABS: Glucose,Whole Blood 188 mg/dL (75-99)
[2017-12-11 18:49] VITALS: RESP 16
[2017-12-11 20:50] LABS: Glucose,Whole Blood 259 mg/dL (75-99)
[2017-12-11] MEDS: ENOXAPARIN 100 MG/ML SYRINGE SQ SCH (20:55)
[2017-12-12] MEDS: SODIUM CHLORIDE 0.9% 1,000 ML IV SCH (01:41)
[2017-12-12 06:04] LABS: Glucose,Whole Blood 160 mg/dL (75-99)
[2017-12-12] MEDS: PANTOPRAZOLE 40 MG TABLET PO SCH (06:13)
[2017-12-12] MEDS: INSULIN ASPART 100 UNIT/ML 1 ML 10 ML VIAL SQ SCH ×2 (06:16→12:42)
[2017-12-12] MEDS: KETOROLAC 30 MG/ML 1 ML VIAL IVP SCH ×2 (06:16→12:44)
[2017-12-12 06:42] LABS: Basophils % (A) 0 %; Eosinophils # (A) 0.2 k/uL (0-0.7); Eosinophils % (A) 3 %; HCT 28.1 % (34.0-46.0); Lymphocytes # (A) 1.1 k/uL (1.0-4.8); Lymphocytes % (A) 17 %; MCH 28.6 pg (25.0-35.0); MCHC 32.2 g/dL (31.0-37.0); Mean Platelet Volume 8.2; Monocytes # (A) 0.6 k/uL (0-1.0); Monocytes % (A) 9 %; Neutrophils # (A) 4.5 k/uL (1.3-7.7); Neutrophils % (A) 68 %; Platelet Count 279 k/uL (150-450); RBC 3.16 m/uL (3.80-5.40); RDW 14.2 % (11.5-15.5); WBC 6.5 k/uL (3.8-10.6)
[2017-12-12 06:57] LABS: ALT 329 U/L (9-52); AST 69 U/L (14-36); Albumin 2.9 g/dL (3.5-5.0); Alkaline Phosphatase 124 U/L (38-126); Anion Gap 12 mmol/L; Blood Urea Nitrogen 5 mg/dL (7-17); Calcium 8.7 mg/dL (8.4-10.2); Carbon Dioxide 25 mmol/L (22-30); Chloride 103 mmol/L (98-107); Glucose 139 mg/dL (74-99); Potassium 3.9 mmol/L (3.5-5.1); Sodium 140 mmol/L (137-145); Total Bilirubin 0.4 mg/dL (0.2-1.3); Total Protein 5.3 g/dL (6.3-8.2)
[2017-12-12] MEDS: BUDESONIDE 0.5 MG/2 ML NEBU INHALATION SCH (08:11)
[2017-12-12] MEDS: IPRATROPIUM-ALBUTEROL 3 ML NEB INHALATION SCH ×2 (08:11→14:02)
[2017-12-12] MEDS: ENOXAPARIN 100 MG/ML SYRINGE SQ SCH (08:23)
[2017-12-12 11:28] VITALS: BP 144/71; TEMP 97.5
[2017-12-12 11:47] LABS: Glucose,Whole Blood 158 mg/dL (75-99)
[2017-12-12 14:16] VITALS: PULSE 82
--- NOTE | 2017-12-12 15:26 | PN ---
PROGRESS NOTE DATE OF SERVICE: 12/12/2017 This patient has no shortness of breath and is feeling well. Her mediastinal tube has been removed. On physical examination, her blood pressure is 144/71, respiratory rate of 16, pulse rate of 77, temperature 97.5. Oxygen saturation on room air is 97%. HEENT is unremarkable. Chest is clear. CARDIOVASCULAR SYSTEM: S1, S2. Abdomen is soft. There is no pedal edema. IMPRESSION AT THIS TIME: 1. Pericardial effusion, status post pericardiotomy. 2. Await final pathology on biopsies. 3. Pulmonary embolism. Continue Lovenox. Agree with discharge planning. 4. Right upper lobe mass, possibly secondary to cancer. Would continue her on Lovenox as an outpatient, have her follow up with Dr. Myers in 48 hours. She was counseled regarding her condition and this approach. MMODL / IJN: [id number] /
--- NOTE | 2017-12-12 19:15 | P.DS ---
Providers Date of admission: 12/09/17 12:45 Expected date of discharge: 12/12/17 Attending physician: Manisha Coto Consults: 12/09/17 13:20 Consult Physician Routine Consulting Provider: Paul Guzman Consult Reason/Comments: lung mass, liver mass Do you want consulting provider notified?: Yes Consult Physician Stat Consulting Provider: Gail Bryant Consult Reason/Comments: cardiac tamponade Do you want consulting provider notified?: Already Contacted Consult Physician Urgent Consulting Provider: Monie Myers Consult Reason/Comments: lung mass, resp distress Do you want consulting provider notified?: Already Contacted 12/09/17 13:22 Consult Physician Routine Consulting Provider: Ari Mariscal Consult Reason/Comments: cardiac tamponade Do you want consulting provider notified?: Yes Primary care physician: Manisha Coto [facility] Course: This is a 62-year-old female with Dr. Hugo medical history significant for hypertension and hypertensive cardio vascular disease, hyperlipidemia, diabetes mellitus type 2, patient was fine up until 2-3 weeks ago according her when she developed significant fatigue and tiredness she was hospitalized at [facility] followed by [facility] [place] and she was found to have a right upper lobe mass and computed tomography scan of the chest was suspicious for pulmonary embolism as well and the patient was started on Lovenox 1 mg per KG every 12 hours and she was sent home patient became quite fatigued and tired and extreme short of breath she ended up coming to the emergency department at [facility] with the above symptoms and she was admitted to the hospital after she was found to have hyperglycemia and at about the same time she was found to have significant hyponatremia thought to be due to the syndrome of inappropriate ADH secretion SIADH due to possible small cell lung cancer, ultrasound of the abdomen at that time was done and that showed possible liver metastases echocardiogram was done and that surprisingly showed significant large pericardial effusion with pericardial tamponade patient was transferred urgently to the intensive care unit at [facility] and she was seen in consultation by cardiothoracic surgery and she is scheduled to go for pericardial window her on today. 12/10: Patient is status post subxiphoid pericardiotomy and transesophageal echocardiogram. Bloody fluid was retrieved and sent for cytology and piece of pericardium was sent for pathology.. A right chest tube was placed in the posterior pericardium. Repeat chest x-ray this morning shows persistent right upper lobe masslike consolidation. This could represent pneumonia in the appropriate clinical setting. Follow-up to ensure no underlying mass. Patient is followed by Dr. parker. There is plan for outpatient PET scan. Patient is pulse oxing 100% on 2 L nasal cannula. Otherwise vital signs have been stable. White count is down to 8.6, hemoglobin 8.7, sodium is improved to 135. Her blood glucose running between 88 and 144. Liver function tests are improved from previous. Patient has been seen by oncology. Patient states that she is feeling much improved today. She states her breathing is better. Her appetite and drinking is improved. Her chest pain is controlled. Plan is to hold anticoagulation for another 24 hours. 12/11: Patient is feeling a lot better today she denies any chest pain, shortness breath, she has no abdominal pain, nausea, she is transferred to the stepdown unit however she is still hold in the ICU because there is no bed available. The cytology report is not back yet and the patient will probably go home tomorrow and follow up as an outpatient. We will start Lovenox tomorrow morning. 12/12, patient's doing significantly well, no side effects after pericardial window procedure, anticipating discharge today, patient to be back on Lovenox as home discharge, patient has 6 doses left, however with her lack of insurance , [facility] clinic cannot assist with medications, it was decided that patient would be seen by Dr. Cid's on Thursday and would reevaluate anticoagulation. Discharge Diagnosis 1. Large pericardial effusion possibly metastatic due to the possible small cell lung cancer with cardiac tamponade. Status post pericardial window with Dr. Bryant, 12/10/2017 for diagnostic and therapeutic purposes with placement of a drain in there, send the fluid for cytology Gram stain and culture, pending cytology on discharge patient would be admitted to intensive care unit, she will be seen in consultation by cardiology as well as by pulmonary and critical care. 2. Right upper lobe mass suggestive of the lung cancer possibly small cell lung cancer. We need to obtain a tissue biopsy consult hematology oncology Dr. Guzman. 3. Hyponatremia secondary to the syndrome of inappropriate ADH secretion. 4. Diabetes mellitus type 2. A1c of 10, start glimepiride 3 mg twice a day rather than basal bolus regimen as it is more expensive than what she could afford 5. Hypertension and hypertensive cardiovascular disease. Hold off antihypertensive medicine until after the surgery. 6. Anemia of chronic disease as well as possible acute blood loss from tamponade. Monitor the patient's CBC. 7. Elevated liver function tests likely related to liver metastases. Patient will need to have a PET scan. 8. Pulmonary embolism. Continue patient on Lovenox 1 mg per KG subcutaneous every 12 hours after the surgery- hold for another 24 hours. 9. Patient is full code. Plan - Discharge Summary Discharge Rx Participant: Yes New Discharge Prescriptions: Continue Lovenox Unknown Dose 1 dose SQ BID Discharge Medication List Lovenox Unknown Dose 1 dose SQ BID 12/09/17 [History] Follow up Appointment(s)/Referral(s): Jing Love NPC [Nurse Practitioner] - 1 Week (call for suture removal 1 week post discharge from hospital ) Monie Myers DO [Doctor of Osteopathic Medicine] - 1-2 Days (CALL OFFICE THURSDAY AM FOR APPOINTMENT TIME THURSDAY ) Rogelio Davis MD [STAFF PHYSICIAN] - 1 Week (TO HAVE ECHOCARDIOGRAM IN OFFICE please call Thursday am for appointment time ) Patient Instructions/Handouts: Pericardial Effusion (DC), Cardiac Tamponade (DC ) Activity/Diet/Wound Care/Special Instructions: Clean incision daily with soap and water. Chest tube suture to be removed 1 week post discharge from hospital. Call for appointment. Discharge Disposition: HOME SELF-CARE
--- NOTE | 2017-12-12 22:12 | PN ---
PROGRESS NOTE Ms. Puckett is doing well. She is in sinus rhythm. Her shortness of breath has improved. Her chest tube has come out. S1, S2 heard normally. Lungs reveal improved entry. Abdomen and lower extremities are unchanged. The patient wishes to go home. I am recommending that she should see Dr. Davis in one week along with an echocardiogram in the office. Her LV function is well-preserved and pericardial infusion showed remarkable improvement on the repeat echo after the window procedure. MMODL / IJN: [id number] /
== END 2017-12-12 15:23 | disposition home or self-care (01) | DRG 163 ==
LOC: 6ICU 12:45 → 6SEL 12-11 18:33
PROVIDERS: ADMIT Internal Medicine; ATTEND Internal Medicine
PROC: B246ZZ4 Ultrasonography of Right and Left Heart, Transesophageal (ICD-10-PCS; 2017-12-09)
PROC: 0W9D00Z Drainage of Pericardial Cavity with Drainage Device, Open Approach (ICD-10-PCS; principal; 2017-12-09 12:45)
DX: C34.11 Malignant neoplasm of upper lobe, right bronchus or lung (principal); I26.99 Other pulmonary embolism without acute cor pulmonale; I31.3 Pericardial effusion (noninflammatory); I31.4 Cardiac tamponade; C78.7 Secondary malignant neoplasm of liver and intrahepatic bile duct; E22.2 Syndrome of inappropriate secretion of antidiuretic hormone; N39.0 Urinary tract infection, site not specified; D63.8 Anemia in other chronic diseases classified elsewhere; E11.65 Type 2 diabetes mellitus with hyperglycemia; I11.9 Hypertensive heart disease without heart failure; E78.5 Hyperlipidemia, unspecified; E86.0 Dehydration; F17.201 Nicotine dependence, unspecified, in remission; I34.0 Nonrheumatic mitral (valve) insufficiency; K21.9 Gastro-esophageal reflux disease without esophagitis; K59.00 Constipation, unspecified; R41.3 Other amnesia; G47.30 Sleep apnea, unspecified; E66.9 Obesity, unspecified; Z68.34 Body mass index [BMI] 34.0-34.9, adult; Z72.89 Other problems related to lifestyle; Z79.01 Long term (current) use of anticoagulants; Z91.14 Patient's other noncompliance with medication regimen; Z90.49 Acquired absence of other specified parts of digestive tract; Z82.49 Family history of ischemic heart disease and other diseases of the circulatory system; Z82.3 Family history of stroke; Z80.0 Family history of malignant neoplasm of digestive organs
CPT/HCPCS: 71045; 80053; 82607; 82728; 82746; 83036; 83540; 83550; 83615; 83735; 83921; 84100; 85025; 85045; 85610; 85730; 86850; 86900; 86901; 88305; 88341; 88342; 93306; 94640; 94760